=== PATIENT | male | born 1985 | race Two or more races ===

== ENCOUNTER 2018-11-04 18:02 | Emergency (ER) | payer OTHER ==
[2018-11-04 18:12] VITALS: BP 144/89; PULSE 82; TEMP 98.6; BMI 28.1
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
--- NOTE | 2018-11-04 18:30 | PDOC ---
History of Present Illness - General Chief Complaint: Laceration Stated Complaint: ABSCESS Time Seen by Provider: 11/04/18 18:13 - History of Present Illness Initial Comments: 11/04/18 18:30 33-year-old male without comorbidities and a history of IV drug use presents for evaluation of swelling of the left hand times one day. He states he uses IV drugs and has used IV drugs in that area. Past History - Past Medical History Allergies/Adverse Reactions: Allergies Allergy/AdvReac Type Severity Reaction Status Date / Time No Known Allergies Allergy Verified 11/04/18 18:09 Home Medications: Ambulatory Orders Sulfamethoxazole/Trimethoprim [Bactrim Ds -] 1 tab PO BID #12 tablet 10/22/15 Cephalexin [Keflex] 500 mg PO QID #40 capsule 11/04/18 Sulfamethoxazole/Trimethoprim [Bactrim Ds -] 1 tab PO BID #14 tablet 11/04/18 Anemia: No Asthma: Yes (on albuterol inhaler) Cancer: No Cardiac Disorders: No CVA: No COPD: No CHF: No Dementia: No Diabetes: No GI Disorders: No Disorders: No HTN: No Hypercholesterolemia: No Kidney Stones: No Liver Disease: No Seizures: No Thyroid Disease: No - Surgical History Abdominal Surgery: No Appendectomy: No Cardiac Surgery: No Cholecystectomy: No Lung Surgery: No Neurologic Surgery: No Orthopedic Surgery: No - Reproductive History Testicular Surgery: No - Immunization History Immunization Up to Date: Yes - Suicide/Smoking/Psychosocial Hx Smoking History: Current every day smoker Have you smoked in the past 12 months: No Number of Cigarettes Smoked Daily: 4 Cigars Per Day: 0 Information on smoking cessation initiated: No 'Breaking Loose' booklet given: 06/12/15 Hx Alcohol Use: No Drug/Substance Use Hx: No Substance Use Type: Alcohol, Cocaine, Heroin Hx Substance Use Treatment: Yes (03/10/14 to 03/15/14) Review of Systems - Review of Systems Constitutional: No: Fever Integumentary: Yes: Erythema *Physical Exam - Vital Signs Last Vital Signs Temp Pulse Resp BP Pulse Ox 98.6 F 82 18 144/89 98 11/04/18 18:09 11/04/18 18:09 11/04/18 18:09 11/04/18 18:09 11/04/18 18:09 - Physical Exam Comments: 11/04/18 18:29 There is faint erythema without warmth tenderness induration or areas of fluctuance over the dorsum of the left hand in the first and second webspace. The area was outlined with a sharpie marker there are no gross sensorimotor deficits no pain with passive stretch or sausagelike edema has full motion of all fingers with 4+ out of 5 planning analyst strength is neurovascularly intact Medical Decision Making - Medical Decision Making 11/04/18 18:28 33-year-old male with a history of IV drug use. He has swelling in the site where he used IV drugs. However examination except for some swelling and some erythematous changes is mostly benign. The swelling started today. I'll place him on Bactrim and Keflex and have him follow-up with hand surgery instructions are to follow-up without fail in 1-2 days he is in agreement with the plan. *DC/Admit/Observation/Transfer Diagnosis at time of Disposition: Cellulitis of left hand Diagnosis at time of Disposition: (Ruled Out): Hand laceration - Discharge Dispostion Disposition: HOME Condition at time of disposition: Stable Decision to Admit order: No - Prescriptions Prescriptions: Cephalexin [Keflex] 500 mg PO QID #40 capsule Sulfamethoxazole/Trimethoprim [Bactrim Ds -] 1 tab PO BID #14 tablet - Referrals Referrals: Clau Crandall [Primary Care Provider] - Karel Harrison MD [Staff Physician] - - Patient Instructions Printed Discharge Instructions: Cellulitis Additional Instructions: Return to the emergency room for worsening symptoms. Please take the antibiotics as directed. Tylenol and Motrin as directed for pain. Follow-up with hand surgery in 1-2 days without fail. - Post Discharge Activity
== END 2018-11-04 18:38 | disposition home or self-care (01) ==
LOC: JERFT 18:02
DX: L03.114 Cellulitis of left upper limb (principal); F15.90 Other stimulant use, unspecified, uncomplicated; F17.210 Nicotine dependence, cigarettes, uncomplicated; J45.909 Unspecified asthma, uncomplicated
CPT/HCPCS: 99281-25

== ENCOUNTER 2018-12-12 00:58 | Inpatient (IN) | payer OTHER ==
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
[2018-12-12] MEDS ORDERED: IBUPROFEN 400 MG TABLET (FP) PO PRN (01:22)
[2018-12-12] MEDS ORDERED: MELATONIN 5 MG TABLETS PO PRN (01:22)
[2018-12-12] MEDS ORDERED: MENTHOL/PHENOL 1 EACH UD MM PRN (01:22)
[2018-12-12] MEDS ORDERED: MAG HYDROX/AL HYDROX/SIMETH 30 ML UNIT-DOSE CUP PO PRN (01:22)
[2018-12-12] MEDS ORDERED: METHOCARBAMOL 500 MG TABLET PO PRN ×2 (01:22→01:26)
[2018-12-12] MEDS ORDERED: BISMUTH SUBSALICYLATE 524 MG/30 ML UD PO PRN (01:22)
[2018-12-12] MEDS ORDERED: hydrOXYzine PAMOATE 25 MG CAPSULE (FP) PO PRN (01:22)
[2018-12-12] MEDS ORDERED: ACETAMINOPHEN 325 MG TABLET (FP) PO PRN ×2 (01:22)
[2018-12-12] MEDS ORDERED: MAGNESIUM HYDROX 2400MG/30ML ORAL SUSPENSION 30 ML CUP PO PRN (01:22)
[2018-12-12] MEDS ORDERED: MAGNESIUM CITRATE 300 ML BOTTLE PO PRN (01:22)
[2018-12-12] MEDS ORDERED: NALOXONE HCL 0.4 MG/ML VIAL IVPUSH PRN (01:26)
[2018-12-12] MEDS ORDERED: guaiFENesin 200 MG/10 ML 10 ML UNIT-DOSE CUPS PO PRN (01:26)
[2018-12-12] MEDS ORDERED: DICYCLOMINE HCL 10 MG CAPSULE PO PRN (01:26)
[2018-12-12] MEDS ORDERED: P-EPHED 60MG/TRIPROLIDI 2.5MG TABLET PO PRN (01:26)
[2018-12-12] MEDS ORDERED: METHADONE HCL 10 MG TABLET (FOR DETOX USE ONLY) PO ONE ×2 (01:26→10:00)
[2018-12-12] MEDS ORDERED: ONDANSETRON *ODT* 4 MG TABLET SL PRN (01:26)
[2018-12-12] MEDS ORDERED: NICOTINE POLACRILEX 2 MG GUM BUC PRN (01:26)
[2018-12-12 01:38] VITALS: BMI 25.0
[2018-12-12 09:41] LABS: HEMATOCRIT 37.4 % (35.4-49); HEMOGLOBIN 12.7 GM/dL (11.7-16.9); MCH 31.1 pg (25.7-33.7); MEAN CELL VOLUME 91.2 fl (80-96); MEAN PLT VOLUME 10.5 fl (7.5-11.1); PLATELET COUNT 175 K/MM3 (134-434); RDW 13.4 % (11.9-15.9)
[2018-12-12 09:49] LABS: ALBUMIN 3.3 g/dl (3.4-5.0); BILIRUBIN,TOTAL 0.3 mg/dL (0.2-1); TOT PROT 6.3 g/dl (6.4-8.2)
[2018-12-12] MEDS ORDERED: PRENATAL VITAMINS W/ FOLIC ACID TABLET (FP) PO SCH (10:00)
[2018-12-12] MEDS ORDERED: NICOTINE 21 MG/24 HOURS TOPICAL PATCH TD SCH (10:00)
--- NOTE | 2018-12-12 10:11 | PN ---
S CIWA - CIWA Score Nausea/Vomitin Muscle Tremors: 2 Anxiety: 2 Agitation: 2 Paroxysmal Sweats: 1-Minimal Palms Moist Orientation: 0-Oriented Tacttile Disturbances: 1-Very Mild Itch/Numbness Auditory Disturbances: 1-Very Mild Visual Disturbances: 0-None Headache: 2-Mild CIWA-Ar Total Score: 13 BHS COWS - Scale Resting Pulse: 0= CT 80 or Below Sweatin= Chills/Flushing Restless Observation: 1= Difficult to Sit Still Pupil Size: 1= Pupils >than Normal Bone or Joint Aches: 2= Severe Diffuse Aches Runny Nose/ Eye Tearin= Nasal Congestion GI Upset > 30mins: 2= Nausea/Diarrhea Tremor Observation of Outstretched Hands: 2= Slight Tremor Visible Yawning Observation: 1= 1-2x During Session Anxiety or Irritability: 2=Irritable/Anxious Goose Flesh Skin: 0=Smooth Skin COWS Score: 13 S Progress Note (SOAP) Subjective: alert,irritable,anxious,interrupted sleep,tremor,pain in the body and back Objective: 12/12/18 10:10 Vital Signs Temperature 97.0 F L 12/12/18 09:12 Pulse Rate 61 12/12/18 09:12 Respiratory Rate 18 12/12/18 09:12 Blood Pressure 111/71 12/12/18 09:12 O2 Sat by Pulse Oximetry (%) 12/12/18 12/12/18 07:30 07:30 WBC 6.0 RBC 4.10 Hgb 12.7 Hct 37.4 MCV 91.2 MCHC 34.0 RDW 13.4 Plt Count 175 Sodium 146 H Potassium 4.0 Chloride 110 H Carbon Dioxide 30 Anion Gap 6 L BUN 16.0 Creatinine 1.0 other labs pending Assessment: 12/12/18 10:11 withdrawal symptom Plan: continue detox
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
[2018-12-12 17:17] VITALS: TEMP 97.9
[2018-12-12] MEDS ORDERED: THIAMINE HCL 100 MG TABLET (FP) PO SCH (22:00)
[2018-12-13 05:47] LABS: PH,URINE 7.5 (5.0-8.0); URINE APPEARANCE CLOUDY; URINE BILIRUBIN NEGATIVE (NEGATIVE); URINE COLOR YELLOW; URINE GLUCOSE (UA) NEGATIVE (NEGATIVE); URINE KETONE NEGATIVE (NEGATIVE); URINE LEUK ESTERASE NEGATIVE (NEGATIVE); URINE NITRITE NEGATIVE (NEGATIVE); URINE PROTEIN NEGATIVE (NEGATIVE)
[2018-12-13 06:29] VITALS: BP 119/66; PULSE 55
--- NOTE | 2018-12-13 09:17 | PN ---
S Progress Note Note: pt states he was advised to come here for a two day detox as per his program project renewal; however pt states he is feeling fine and wants to see his daughter play softball tournament. pt signed out AMA.
--- NOTE | 2018-12-13 09:19 | DS ---
[facility] Detox Discharge Summary Admission Date: 12/12/18 - History Present History: Opioid Dependence - Physical Exam Results Vital Signs: Vital Signs Temperature 97.9 F 12/13/18 06:00 Pulse Rate 55 L 12/13/18 06:00 Respiratory Rate 18 12/13/18 06:00 Blood Pressure 119/66 12/13/18 06:00 O2 Sat by Pulse Oximetry (%) - Treatment Hospital Course: Discharged Condition Good - AMA Did Patient Leave Against Medical Advice: Yes (going home.)
[2018-12-13] MEDS ORDERED: METHADONE HCL 10 MG TABLET (FOR DETOX USE ONLY) PO ONE (10:00)
[2018-12-14] MEDS ORDERED: METHADONE HCL 10 MG TABLET (FOR DETOX USE ONLY) PO ONE (10:00)
[2018-12-15] MEDS ORDERED: METHADONE HCL 10 MG TABLET (FOR DETOX USE ONLY) PO ONE (10:00)
[2018-12-16] MEDS ORDERED: METHADONE HCL 5 MG TABLET (FOR DETOX USE ONLY) PO ONE (06:00)
== END 2018-12-13 09:40 | disposition left against medical advice (07) | DRG 770 ==
LOC: YASAS 00:58 → Y6N 01:52
PROVIDERS: ADMIT Surgery; ATTEND Surgery
PROC: HZ2ZZZZ Detoxification Services for Substance Abuse Treatment (ICD-10-PCS; principal; 2018-12-12)
DX: F11.23 Opioid dependence with withdrawal (principal); F17.210 Nicotine dependence, cigarettes, uncomplicated; F19.24 Other psychoactive substance dependence with psychoactive substance-induced mood disorder; F31.9 Bipolar disorder, unspecified; F41.9 Anxiety disorder, unspecified; F43.10 Post-traumatic stress disorder, unspecified; G47.00 Insomnia, unspecified; J45.20 Mild intermittent asthma, uncomplicated; Z91.5 Personal history of self-harm
CPT/HCPCS: 36415; 80053; 81003; 85027; 86593

== ENCOUNTER 2019-02-17 10:41 | Emergency (ER) | payer OTHER ==
[2019-02-17 10:48] VITALS: BP 139/67; PULSE 80; TEMP 97.9; BMI 25.7
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
== END 2019-02-17 12:10 | disposition home or self-care (01) ==
LOC: JERFT 10:41
DX: S63.502A Unspecified sprain of left wrist, initial encounter (principal); S96.812A Strain of other specified muscles and tendons at ankle and foot level, left foot, initial encounter; X50.1XXA Overexertion from prolonged static or awkward postures, initial encounter; Y93.11 Activity, swimming; Y99.8 Other external cause status; Y92.89 Other specified places as the place of occurrence of the external cause
CPT/HCPCS: 73110-TC-LT-FY; 73130-TC-LT-FY; 99281-25

== ENCOUNTER 2019-02-17 20:23 | Emergency (ER) | payer OTHER ==
--- NOTE | 2019-02-17 20:38 | PDOC ---
Rapid Medical Evaluation Time Seen by Provider: 02/17/19 20:36 Medical Evaluation: Allergies Allergy/AdvReac Type Severity Reaction Status Date / Time No Known Allergies Allergy Verified 02/17/19 10:48 02/17/19 20:37 This patient had a brief in-person evaluation in triage cc: bilateral eye itching and swelling with contact lense in place today Patient reports no pain or blurred vision. Complaining of itching in both eyes HPI: HEENT: bilateral swollen eyelids unlabored breathing orders: none This patient will proceed to ED for further evaluation. Discharge Disposition - Diagnosis Eye irritation - Referrals - Patient Instructions - Post Discharge Activity
[2019-02-17 20:43] VITALS: BP 149/83; PULSE 75; TEMP 98; BMI 25.7
--- NOTE | 2019-02-17 21:40 | PDOC ---
History of Present Illness - General Chief Complaint: Eye Problem Stated Complaint: ITCHY EYES/SWELLING Time Seen by Provider: 02/17/19 20:36 - History of Present Illness Initial Comments: 02/17/19 21:39 33 -year-old male presents for evaluation of bilateral eye irritation and upper lid swelling 2 hours Past History - Past Medical History Allergies/Adverse Reactions: Allergies Allergy/AdvReac Type Severity Reaction Status Date / Time No Known Allergies Allergy Verified 02/17/19 20:43 Home Medications: Ambulatory Orders Cephalexin Monohydrate [Keflex -] 500 mg PO Q6HPO #7 capsule 02/14/19 Clotrimazole [Athlete's Foot] 60 gm TP BID #1 cream..g. 02/17/19 Olopatadine HCl [Pataday] 1 drop OU DAILY #1 bottle 02/17/19 Anemia: No Asthma: Yes (on albuterol inhaler) Cancer: No Cardiac Disorders: No CVA: No COPD: No CHF: No Dementia: No Diabetes: No GI Disorders: No Disorders: No HTN: No Hypercholesterolemia: No Kidney Stones: No Liver Disease: No Seizures: No Thyroid Disease: No - Surgical History Abdominal Surgery: No Appendectomy: No Cardiac Surgery: No Cholecystectomy: No Lung Surgery: No Neurologic Surgery: No Orthopedic Surgery: No - Reproductive History Testicular Surgery: No - Immunization History Immunization Up to Date: Yes - Suicide/Smoking/Psychosocial Hx Smoking History: Current every day smoker Have you smoked in the past 12 months: No Number of Cigarettes Smoked Daily: 20 Cigars Per Day: 0 Information on smoking cessation initiated: No 'Breaking Loose' booklet given: 02/11/19 Hx Alcohol Use: No Drug/Substance Use Hx: No Substance Use Type: Heroin Hx Substance Use Treatment: Yes ([facility]) Review of Systems - Review of Systems Constitutional: No: Fever HEENTM: Yes: See HPI *Physical Exam - Vital Signs Last Vital Signs Temp Pulse Resp BP Pulse Ox 98.0 F 75 16 149/83 100 02/17/19 20:40 02/17/19 20:40 02/17/19 20:40 02/17/19 20:40 02/17/19 20:40 - Physical Exam Comments: 02/17/19 21:37 HEAD: NC/AT EYES: Conjuntiva Emery injected upper lid swollen but normal color and temperature. Ears: Canals and TM's normal NOSE: No d/c THROAT: Moist mucous membrances, oral pharanx clear, uvula midline NECK: Supple without adenopathy CARDIAC: S1 S2 LUNGS: CTA Full and Equal breath sounds ABDOMEN: Soft NT ND MS: Full ROM in all joints without edema NEUROLOGIC: No gross sensory or motor deficits, NVID SKIN: Normal color and temperature no lesions or rashes Medical Decision Making - Medical Decision Making 02/17/19 21:36 PAtient suffers from seasonal ALLERGIES this is a onset of irritation due to change in weather. This is an ALLERGIC conjunctivitis with bilateral upper lid swelling. No evidence of infection. Will start on antihistamine eyedrops and have patient follow up with PCP. *DC/Admit/Observation/Transfer Diagnosis at time of Disposition: Eye irritation - Discharge Dispostion Disposition: HOME Condition at time of disposition: Stable Decision to Admit order: No - Prescriptions Prescriptions: Olopatadine HCl [Pataday] 1 drop OU DAILY #1 bottle - Referrals Referrals: Clau Crandall [Primary Care Provider] - - Patient Instructions Additional Instructions: These use the antihistamine eyedrop as directed. Return to the emergency room for worsening symptoms. Follow-up with your primary care physician in 1-2 days for further evaluation and treatment options. - Post Discharge Activity
== END 2019-02-17 21:41 | disposition home or self-care (01) ==
LOC: JERFT 20:23
DX: H10.13 Acute atopic conjunctivitis, bilateral (principal)
CPT/HCPCS: 99281-25

== ENCOUNTER 2019-02-23 20:50 | Emergency (ER) | payer OTHER ==
[2019-02-23 20:56] VITALS: BP 132/60; PULSE 76; TEMP 98.3; BMI 25.7
[2019-02-23] MEDS ORDERED: IBUPROFEN 600 MG TABLET (FP) PO ONE ×2 (21:38→21:41)
--- NOTE | 2019-02-23 22:10 | PDOC ---
History of Present Illness - General Chief Complaint: Abscess Boil Stated Complaint: ABCESS ON L ARM Time Seen by Provider: 02/23/19 21:34 History Source: Patient Exam Limitations: No Limitations - History of Present Illness Initial Comments: 02/23/19 22:03 HISTORY OF PRESENT ILLNESS: 33-year-old male past medical history of asthma and IV drug use presents emergency department for evaluation of abscess to his left forearm. Patient was seen at [facility] for detox approximately one week ago was started on Keflex at that time. Patient reports that time there was no pocket to drain tube was told to take the antibiotics and return to the emergency Department if anything were to develop. He denies fevers, chills, lymphangitis, and numbness or tingling to his fingers or IV drug use in the past week. No recent travel or sick contacts. PAST MEDICAL HISTORY: Denies past medical history SURGICAL HISTORY: Denies ALLERGIES: No known drug allergies REVIEW OF SYSTEMS General/Constitutional: Denies fever or chills. Denies weakness, weight change. HEENT: Denies change in vision. Denies ear pain or discharge. Denies sore throat. Cardiovascular: Denies chest pain or shortness of breath. Respiratory: Denies cough, wheezing, or hemoptysis. Gastrointestinal: Denies nausea, vomiting, diarrhea or constipation. Denies rectal bleeding. Genitourinary: Denies dysuria, frequency, or change in urination. Musculoskeletal: Denies joint or muscle swelling or pain. Denies neck or back pain. Skin and breasts: see HPI Neurologic: Denies headache, vertigo, loss of consciousness, or loss of sensation. Psychiatric: Denies depression or anxiety. Endocrine: Denies increased thirst. Denies abnormal weight change. Hematologic/Lymphatic: Denies anemia, easy bleeding, or history of blood clots. Allergic/Immunologic: Denies hives or skin allergy. Denies latex allergy. PHYSICAL EXAM General Appearance: Well-appearing, appropriately dressed. No apparent distress , no intoxication. Respiratory/Chest: Lungs CTAB. No shortness of breath, chest tenderness, respiratory distress, accessory muscle use. No crackles, rales, rhonchi, stridor , wheezing, dullness Cardiovascular: RRR. S1, S2. No JVD, murmur, bradycardia, tachycardia. Vascular Pulses: Dorsalis-Pedis (R): 2+, Dorsalis-Pedis (L): 2+ Musculoskeletal/Extremities: Normal inspection. FROM of all extremities, normal capillary refill. Pelvis Stable. No CVA tenderness. No tenderness to extremities, pedal edema, swelling, erythema or deformity. Integumentary: 4 cm x 6 cm area of erythema and induration present. 2 cm circular area of fluctuance noted. No lymphangitis present. Neurologic: penology professor II-XII intact. Fully oriented, alert. Appropriate mood/affect. Motor strength 5/5. No appreciable EOM palsy, facial droop or sensory deficit. Past History - Past Medical History Allergies/Adverse Reactions: Allergies Allergy/AdvReac Type Severity Reaction Status Date / Time No Known Allergies Allergy Verified 02/26/19 17:42 Home Medications: Ambulatory Orders Cephalexin Monohydrate [Keflex -] 500 mg PO Q6HPO #7 capsule 02/14/19 Clotrimazole [Athlete's Foot] 60 gm TP BID #1 cream..g. 02/17/19 Olopatadine HCl [Pataday] 1 drop OU DAILY #1 bottle 02/17/19 Olopatadine HCl [Pataday] 1 drop OU DAILY #1 bottle 02/17/19 Clindamycin [Cleocin -] 450 mg PO Q8H #63 capsule 02/23/19 Anemia: No Asthma: Yes (on albuterol inhaler) Cancer: No Cardiac Disorders: No CVA: No COPD: No CHF: No Dementia: No Diabetes: No GI Disorders: No Disorders: No HTN: No Hypercholesterolemia: No Kidney Stones: No Liver Disease: No Seizures: No Thyroid Disease: No - Surgical History Abdominal Surgery: No Appendectomy: No Cardiac Surgery: No Cholecystectomy: No Lung Surgery: No Neurologic Surgery: No Orthopedic Surgery: No - Reproductive History Testicular Surgery: No - Immunization History Immunization Up to Date: Yes - Suicide/Smoking/Psychosocial Hx Smoking History: Current every day smoker Have you smoked in the past 12 months: Yes Number of Cigarettes Smoked Daily: 10 Cigars Per Day: 0 Information on smoking cessation initiated: Yes 'Breaking Loose' booklet given: 02/11/19 Hx Alcohol Use: No Drug/Substance Use Hx: No Substance Use Type: Heroin Hx Substance Use Treatment: Yes ([facility]) *Physical Exam - Vital Signs Last Vital Signs Temp Pulse Resp BP Pulse Ox 98.3 F 76 18 132/60 100 02/23/19 20:52 02/23/19 20:52 02/23/19 20:52 02/23/19 20:52 02/23/19 20:52 Procedures - Consent Consent obtained: Verbal, From Patient - Incision and Drainage I&D Site: Left: Arm Betadine cleansed: Yes Anesthesia: 1% Lidocaine Volume(ml): 6 Blade Size: 11 Attempts: 1 Iodinated Packin/2 in Complications: none Dressing: Yes Progress: 02/23/19 22:06 patient tolerated well ED Treatment Course - Medications Given in the ED: ED Medications Discontinued Medications Generic Name Dose Route Start Last Admin Trade Name Luz Maria PRN Reason Stop Dose Admin Ibuprofen 600 mg 02/23/19 21:38 02/23/19 21:42 Motrin - PO 02/23/19 21:39 600 mg ONCE ONE Administration Medical Decision Making - Medical Decision Making 02/23/19 22:07 A/P: 33-year-old male with abscess to his left forearm status post IV drug use No signs of compartment syndrome present. I&D-see procedure note for details Discharge home with prescription for clindamycin I discussed the physical exam findings, ancillary test results and final diagnoses with the patient. I answered all of the patient's questions. The patient was satisfied with the care received and felt comfortable with the discharge plan and treatment plan. The patient will call their primary care physician within 24 hours to arrange follow-up and will return to the Emergency Department with any new, persistent or worsening symptoms. Portions of this note have been documented using voice recognition software. As a result, errors may occur in the photographer scientific process. Effort has been made to correct all grammatical and photographer scientific error, but some may have been missed. 02/23/19 22:07 *DC/Admit/Observation/Transfer Diagnosis at time of Disposition: Abscess of left forearm - Discharge Dispostion Disposition: HOME Condition at time of disposition: Stable Decision to Admit order: No - Prescriptions Prescriptions: Clindamycin [Cleocin -] 450 mg PO Q8H #63 capsule - Referrals - Patient Instructions Additional Instructions: Take clindamycin 450 mg 3 times a day for the next 7 days Finish all antibiotics even if you feel better. Apply warm compresses to affected areas as needed. Return to emergency department in 2 days for wound check. Return to ER sooner for any worsening pain, drainage, or any other concerns. Thank you very much for choosing us to provide your emergent health care needs. - Post Discharge Activity
== END 2019-02-23 22:24 | disposition home or self-care (01) ==
LOC: JERFT 20:50
PROC: 0J9H0ZZ Drainage of Left Lower Arm Subcutaneous Tissue and Fascia, Open Approach (ICD-10-PCS; principal; 2019-02-23)
DX: L02.414 Cutaneous abscess of left upper limb (principal)
CPT/HCPCS: 10060; 87070; 87186; 87205; 99282-25

== ENCOUNTER 2019-02-26 17:29 | Emergency (ER) | payer OTHER ==
[2019-02-26 17:41] VITALS: BP 121/69; PULSE 88; TEMP 98.5; BMI 25.7
--- NOTE | 2019-02-26 17:41 | PDOC ---
Rapid Medical Evaluation Time Seen by Provider: 02/26/19 17:39 Medical Evaluation: Allergies Allergy/AdvReac Type Severity Reaction Status Date / Time No Known Allergies Allergy Verified 02/23/19 20:52 02/26/19 17:40 I have performed a brief in-person evaluation of this patient. The patient presents with a chief complaint of: wound check Pertinent physical exam findings:stable and in NAD, non-focal I have ordered the following: n/a The patient will proceed to the ED for further evaluation.
--- NOTE | 2019-02-26 19:03 | PDOC ---
Suture Removal/Wound Check HPI - History of Present Illness Chief Complaint: Revisit,Wound Recheck Stated Complaint: EVALUATION Time Seen by Provider: 02/26/19 17:39 History Source: Yes: Patient Exam Limitations: Yes: No Limitations Treated at: [facility] Date of Last ED visit: 02/23/19 - Previous ED Treatment Type of procedure performed on last visit: Yes: I&D of Abscess (Patient here for wound check s/p I&D. Packing removed.) Antibiotics Prescribed: Yes - Onset of Previous Treatment Comment:: 02/26/19 19:04 Patient here for wound check s/p I&D. Packing removed. Abscess healing well, decreased pain and swelling per patient. Patient denies any f/n/v/d. Packing dressed with dry gauze, tegaderm. Advised patient of signs and symptoms for return to ER and to complete antibiotics as prescribed. Patient verbalized understanding and agrees to plan. Past History - Past Medical History Allergies/Adverse Reactions: Allergies Allergy/AdvReac Type Severity Reaction Status Date / Time No Known Allergies Allergy Verified 02/26/19 17:42 Home Medications: Ambulatory Orders Cephalexin Monohydrate [Keflex -] 500 mg PO Q6HPO #7 capsule 02/14/19 Clotrimazole [Athlete's Foot] 60 gm TP BID #1 cream..g. 02/17/19 Olopatadine HCl [Pataday] 1 drop OU DAILY #1 bottle 02/17/19 Olopatadine HCl [Pataday] 1 drop OU DAILY #1 bottle 02/17/19 Clindamycin [Cleocin -] 450 mg PO Q8H #63 capsule 02/23/19 Anemia: No Asthma: Yes (on albuterol inhaler) Cancer: No Cardiac Disorders: No CVA: No COPD: No CHF: No Dementia: No Diabetes: No GI Disorders: No Disorders: No HTN: No Hypercholesterolemia: No Kidney Stones: No Liver Disease: No Seizures: No Thyroid Disease: No - Surgical History Abdominal Surgery: No Appendectomy: No Cardiac Surgery: No Cholecystectomy: No Lung Surgery: No Neurologic Surgery: No Orthopedic Surgery: No - Reproductive History Testicular Surgery: No - Immunization History Immunization Up to Date: Yes - Suicide/Smoking/Psychosocial Hx Smoking History: Current every day smoker Have you smoked in the past 12 months: Yes Number of Cigarettes Smoked Daily: 10 Cigars Per Day: 0 Information on smoking cessation initiated: No 'Breaking Loose' booklet given: 02/11/19 Hx Alcohol Use: Yes Drug/Substance Use Hx: Yes ("EVERYTHING") Substance Use Type: Heroin Hx Substance Use Treatment: Yes ([facility]) *Physical Exam - Vital Signs Last Vital Signs Temp Pulse Resp BP Pulse Ox 98.5 F 88 16 121/69 97 02/26/19 17:39 02/26/19 17:39 02/26/19 17:39 02/26/19 17:39 02/26/19 17:39 *DC/Admit/Observation/Transfer Diagnosis at time of Disposition: Encounter for wound re-check - Discharge Dispostion Disposition: HOME Condition at time of disposition: Stable Decision to Admit order: No - Referrals Referrals: Clau Crandall [Primary Care Provider] - - Patient Instructions Printed Discharge Instructions: How to Care for a Surgical Wound - Post Discharge Activity
== END 2019-02-26 19:14 | disposition home or self-care (01) ==
LOC: JERFT 17:29
DX: Z48.817 Encounter for surgical aftercare following surgery on the skin and subcutaneous tissue (principal); Z48.01 Encounter for change or removal of surgical wound dressing
CPT/HCPCS: 99281-25

== ENCOUNTER 2021-09-01 14:42 | Emergency (ER) | payer OTHER ==
[2021-09-01 14:55] VITALS: BP 128/85; PULSE 71; TEMP 97.9; BMI 27.2
[2021-09-01] MEDS ORDERED: LIDOCAINE 5% TOPICAL PATCH TP ONE (15:23)
[2021-09-01] MEDS ORDERED: IBUPROFEN 600 MG TABLET (FP) PO ONE ×2 (15:23→15:25)
[2021-09-01] MEDS ORDERED: CYCLOBENZAPRINE HCL 10 MG TABLET (FP) PO ONE (15:23)
[2021-09-01] MEDS ORDERED: CYCLOBENZAPRINE HCL 10 MG TABLET (FP) ONE (15:25)
[2021-09-01] MEDS ORDERED: LIDOCAINE 5% TOPICAL PATCH ONE (15:25)
[2021-09-01] MEDS ORDERED: LIDOCAINE PATCH REMOVAL MC SCH (22:00)
== END 2021-09-01 15:55 | disposition home or self-care (01) ==
LOC: JERFT 14:42
DX: M62.830 Muscle spasm of back (principal); M54.50 Low back pain, unspecified
CPT/HCPCS: 72100-TC-FY; 99283-25

== ENCOUNTER 2021-09-19 18:23 | Emergency (ER) | payer OTHER ==
[2021-09-19] MEDS ORDERED: SODIUM CHLORIDE 1,000 ML IV STA (18:36)
[2021-09-19 18:37] VITALS: BMI 27.2
[2021-09-19 19:54] LABS: BASO % 0.4 % (0-2.0); EOS % 1.5 % (0-4.5); HEMATOCRIT 37.4 % (35.4-49); HEMOGLOBIN 12.8 GM/dL (11.7-16.9); LYMPH % 13.8 % (8-40); MCH 31.3 pg (25.7-33.7); MCHC 34.3 g/dl (32.0-35.9); MEAN CELL VOLUME 91.1 fl (80-96); MEAN PLT VOLUME 10.1 fl (7.5-11.1); MONO % 9.8 % (3.8-10.2); NEUT % 74.5 % (42.8-82.8); PLATELET COUNT 202 10^3/uL (134-434); RDW 13.7 % (11.9-15.9); WHITE BLOOD COUNT 8.9 K/mm3 (4.0-10.0)
[2021-09-19 20:10] LABS: CHLORIDE 108 mmol/L (98-107); SODIUM 141 mmol/L (136-145)
[2021-09-19 20:12] LABS: ANION GAP 5 MMOL/L (8-16); BLOOD UREA NITROGEN 11.8 mg/dL (7-18); CALCIUM 8.7 mg/dL (8.5-10.1); CO2 28 mmol/L (21-32)
[2021-09-19 20:13] LABS: ALBUMIN 3.7 g/dl (3.4-5.0); GLUCOSE,RANDOM 112 mg/dL (74-106)
[2021-09-19 20:16] LABS: SGOT/AST 45 U/L (15-37); SGPT/ALT 40 U/L (13-61)
[2021-09-19 20:17] LABS: BILIRUBIN,TOTAL 0.3 mg/dL (0.2-1); TOT PROT 7.1 g/dl (6.4-8.2)
[2021-09-19 20:18] LABS: ALK PHOS 84 U/L (45-117)
[2021-09-19 21:33] LABS: PHENCYCLIDINE,URINE NEGATIVE (NEGATIVE); URINE AMPHETAMINES NEGATIVE (NEGATIVE); URINE BENZODIAZEPINES NEGATIVE (NEGATIVE)
[2021-09-19 21:34] LABS: URINE BARBITURATES NEGATIVE (NEGATIVE)
[2021-09-19 21:35] LABS: COCAINE, UR POSITIVE (NEGATIVE); METHADONE, UR POSITIVE (NEGATIVE); OPIATES, URI POSITIVE (NEGATIVE)
[2021-09-19 22:30] VITALS: BP 125/71; PULSE 85; TEMP 97.6
== END 2021-09-19 22:35 | disposition home or self-care (01) ==
LOC: JER 18:23
PROC: 3E0337Z Introduction of Electrolytic and Water Balance Substance into Peripheral Vein, Percutaneous Approach (ICD-10-PCS; principal; 2021-09-19)
DX: F11.920 Opioid use, unspecified with intoxication, uncomplicated (principal)
CPT/HCPCS: 36415; 80053; 80307; 82550; 82553; 82962; 85025; 93005; 93010; 99285-25

== ENCOUNTER 2021-09-21 09:37 | Inpatient (IN) | payer OTHER ==
[2021-09-21] MEDS ORDERED: ACETAMINOPHEN 325 MG TABLET (FP) PO PRN ×2 (11:13)
[2021-09-21] MEDS ORDERED: MENTHOL/PHENOL 1 EACH UD MM PRN (11:13)
[2021-09-21] MEDS ORDERED: IBUPROFEN 400 MG TABLET (FP) PO PRN (11:13)
[2021-09-21] MEDS ORDERED: MAGNESIUM CITRATE 300 ML BOTTLE PO PRN (11:13)
[2021-09-21] MEDS ORDERED: LOPERAMIDE HCL 2 MG CAPSULE PO PRN (11:13)
[2021-09-21] MEDS ORDERED: ONDANSETRON *ODT* 4 MG TABLET SL PRN (11:13)
[2021-09-21] MEDS ORDERED: BISMUTH SUBSALICYLATE 262 MG/15 ML BTL PO PRN (11:13)
[2021-09-21] MEDS ORDERED: MAGNESIUM HYDROX 2400MG/30ML ORAL SUSPENSION 30 ML CUP PO PRN (11:13)
[2021-09-21] MEDS ORDERED: DICYCLOMINE HCL 10 MG CAPSULE PO PRN (11:13)
[2021-09-21] MEDS ORDERED: NICOTINE 10 MG CARTRIDGE (INHALER) IH PRN (11:13)
[2021-09-21] MEDS ORDERED: MAG HYDROX/AL HYDROX/SIMETH 30 ML UNIT-DOSE CUP PO PRN (11:13)
[2021-09-21] MEDS ORDERED: ALBUTEROL SO4 HFA INHALER IH PRN (11:16)
[2021-09-21] MEDS ORDERED: NALOXONE (NARCAN) HCL 4 MG/0.1 ML SPRAY NS PRN (11:16)
[2021-09-21 11:37] VITALS: BMI 27.5
[2021-09-21] MEDS: METHOCARBAMOL 500 MG TABLET PO PRN ×2 (14:44→23:00)
[2021-09-21] MEDS: DOCUSATE SODIUM 100 MG CAPSULE (FP) PO SCH ×2 (14:44→22:59)
[2021-09-21] MEDS: hydrOXYzine PAMOATE 25 MG CAPSULE (FP) PO SCH ×3 (14:44→22:59)
[2021-09-21 18:31] LABS: CALCIUM 9.5 mg/dL (8.5-10.1)
[2021-09-21 18:32] LABS: HEMATOCRIT 37.1 % (35.4-49); HEMOGLOBIN 12.9 GM/dL (11.7-16.9); MCH 31.6 pg (25.7-33.7); MCHC 34.9 g/dl (32.0-35.9); MEAN CELL VOLUME 90.7 fl (80-96); MEAN PLT VOLUME 10.5 fl (7.5-11.1); PLATELET COUNT 225 10^3/uL (134-434); RBC 4.09 M/mm3 (4.00-5.60); RDW 13.6 % (11.9-15.9)
[2021-09-21 18:36] LABS: BILIRUBIN,TOTAL 0.7 mg/dL (0.2-1); TOT PROT 7.8 g/dl (6.4-8.2)
[2021-09-21] MEDS: LIDOCAINE 5% TOPICAL PATCH TP SCH (18:57)
[2021-09-21 19:28] LABS: HIV INTERPRETATION NEGATIVE (NEGATIVE)
[2021-09-21] MEDS: LIDOCAINE PATCH REMOVAL MC SCH (22:59)
[2021-09-21] MEDS: THIAMINE HCL 100 MG TABLET (FP) PO SCH (22:59)
[2021-09-21] MEDS: MELATONIN 5 MG TABLETS PO SCH (22:59)
[2021-09-22] MEDS: METHOCARBAMOL 500 MG TABLET PO PRN (06:15)
[2021-09-22] MEDS: DOCUSATE SODIUM 100 MG CAPSULE (FP) PO SCH ×3 (06:15→23:13)
[2021-09-22] MEDS: hydrOXYzine PAMOATE 25 MG CAPSULE (FP) PO SCH ×5 (06:15→23:14)
[2021-09-22] MEDS ORDERED: methaDONE HCL 10 MG TABLET (FOR DETOX USE ONLY) PO ONE (10:12)
[2021-09-22] MEDS: PRENATAL VITAMINS W/ FOLIC ACID TABLET (FP) PO SCH (10:29)
[2021-09-22] MEDS: LIDOCAINE 5% TOPICAL PATCH TP SCH (10:56)
[2021-09-22] MEDS: diazePAM 5 MG TABLET PO PRN ×2 (14:56→19:31)
[2021-09-22] MEDS: MELATONIN 5 MG TABLETS PO SCH (23:13)
[2021-09-22] MEDS: LIDOCAINE PATCH REMOVAL MC SCH (23:13)
[2021-09-22] MEDS: THIAMINE HCL 100 MG TABLET (FP) PO SCH (23:14)
[2021-09-23] MEDS: METHOCARBAMOL 500 MG TABLET PO PRN ×2 (05:58→15:03)
[2021-09-23] MEDS: DOCUSATE SODIUM 100 MG CAPSULE (FP) PO SCH ×3 (06:03→22:21)
[2021-09-23] MEDS: hydrOXYzine PAMOATE 25 MG CAPSULE (FP) PO SCH ×5 (06:03→22:22)
[2021-09-23] MEDS: diazePAM 5 MG TABLET PO PRN ×4 (06:04→22:21)
[2021-09-23] MEDS: LIDOCAINE 5% TOPICAL PATCH TP SCH (10:35)
[2021-09-23] MEDS: PRENATAL VITAMINS W/ FOLIC ACID TABLET (FP) PO SCH (10:38)
[2021-09-23 15:07] LABS: SARS-CoV-2 NAA Not Detected (Not Detected)
[2021-09-23] MEDS: THIAMINE HCL 100 MG TABLET (FP) PO SCH (22:19)
[2021-09-23] MEDS: MELATONIN 5 MG TABLETS PO SCH (22:19)
[2021-09-23] MEDS: LIDOCAINE PATCH REMOVAL MC SCH (22:22)
[2021-09-24] MEDS: diazePAM 5 MG TABLET PO PRN ×3 (06:32→21:16)
[2021-09-24] MEDS: DOCUSATE SODIUM 100 MG CAPSULE (FP) PO SCH ×3 (06:33→21:19)
[2021-09-24] MEDS: hydrOXYzine PAMOATE 25 MG CAPSULE (FP) PO SCH ×5 (06:34→21:19)
[2021-09-24] MEDS: METHOCARBAMOL 500 MG TABLET PO PRN (09:55)
[2021-09-24] MEDS: LIDOCAINE 5% TOPICAL PATCH TP SCH (09:56)
[2021-09-24] MEDS: PRENATAL VITAMINS W/ FOLIC ACID TABLET (FP) PO SCH (10:00)
[2021-09-24] MEDS ORDERED: methaDONE HCL 10 MG TABLET (FOR DETOX USE ONLY) PO ONE (10:00)
[2021-09-24] MEDS: THIAMINE HCL 100 MG TABLET (FP) PO SCH (21:18)
[2021-09-24] MEDS: MELATONIN 5 MG TABLETS PO SCH (21:18)
[2021-09-24] MEDS: LIDOCAINE PATCH REMOVAL MC SCH (21:19)
[2021-09-25] MEDS: hydrOXYzine PAMOATE 25 MG CAPSULE (FP) PO SCH (06:13)
[2021-09-25] MEDS: DOCUSATE SODIUM 100 MG CAPSULE (FP) PO SCH (06:13)
[2021-09-25 08:36] VITALS: BP 121/60; PULSE 68; TEMP 97.3
== END 2021-09-25 09:29 | disposition home or self-care (01) | DRG 773 ==
LOC: YASAS 09:37 → Y3N 12:28
PROVIDERS: ADMIT Allergy & Immunology; ATTEND Allergy & Immunology
PROC: HZ2ZZZZ Detoxification Services for Substance Abuse Treatment (ICD-10-PCS; principal; 2021-09-21)
DX: F11.23 Opioid dependence with withdrawal (principal); F12.20 Cannabis dependence, uncomplicated; F17.210 Nicotine dependence, cigarettes, uncomplicated; F19.24 Other psychoactive substance dependence with psychoactive substance-induced mood disorder; F41.9 Anxiety disorder, unspecified; F32.A Depression, unspecified; F43.10 Post-traumatic stress disorder, unspecified; J45.909 Unspecified asthma, uncomplicated; M54.50 Low back pain, unspecified; R03.0 Elevated blood-pressure reading, without diagnosis of hypertension; Z56.0 Unemployment, unspecified; Z59.00 Homelessness unspecified
CPT/HCPCS: 36415; 80053; 85027; 86780; 86803; 87389; 87811; C9803-CS; U0003; U0005

== ENCOUNTER 2021-09-26 15:31 | Inpatient (IN) | payer OTHER ==
[2021-09-26 17:20] VITALS: BMI 28.7
[2021-09-26] MEDS ORDERED: ALBUTEROL SO4 HFA INHALER IH PRN (19:15)
[2021-09-26] MEDS ORDERED: MAG HYDROX/AL HYDROX/SIMETH 30 ML UNIT-DOSE CUP PO PRN (19:16)
[2021-09-26] MEDS ORDERED: ACETAMINOPHEN 325 MG TABLET (FP) PO PRN (19:16)
[2021-09-26] MEDS ORDERED: MAGNESIUM HYDROX 2400MG/30ML ORAL SUSPENSION 30 ML CUP PO PRN (19:16)
[2021-09-26] MEDS ORDERED: MENTHOL/PHENOL 1 EACH UD MM PRN (19:16)
[2021-09-26] MEDS ORDERED: P-EPHED 60MG/TRIPROLIDI 2.5MG TABLET PO PRN (19:16)
[2021-09-26] MEDS ORDERED: NICOTINE 10 MG CARTRIDGE (INHALER) IH PRN (19:16)
[2021-09-26] MEDS ORDERED: LOPERAMIDE HCL 2 MG CAPSULE PO PRN (19:16)
[2021-09-26] MEDS ORDERED: MAGNESIUM CITRATE 300 ML BOTTLE PO PRN (19:16)
[2021-09-26] MEDS ORDERED: guaiFENesin 200 MG/10 ML 10 ML UNIT-DOSE CUPS PO PRN (19:16)
[2021-09-27] MEDS: THIAMINE HCL 100 MG TABLET (FP) PO SCH ×2 (03:50→21:15)
[2021-09-27] MEDS: MELATONIN 5 MG TABLETS PO SCH ×2 (03:50→21:15)
[2021-09-27] MEDS: IBUPROFEN 400 MG TABLET (FP) PO PRN (04:14)
[2021-09-27] MEDS: PRENATAL VITAMINS W/ FOLIC ACID TABLET (FP) PO SCH (09:52)
[2021-09-27] MEDS: LIDOCAINE 5% TOPICAL PATCH TP SCH (20:17)
[2021-09-27] MEDS: GABAPENTIN 100 MG CAPSULE PO SCH (21:15)
[2021-09-27] MEDS: QUEtiapine FUMARATE 100 MG TABLET (FP) PO SCH (21:15)
[2021-09-27] MEDS: LIDOCAINE PATCH REMOVAL MC SCH (21:16)
[2021-09-28] MEDS: GABAPENTIN 100 MG CAPSULE PO SCH ×3 (06:50→21:20)
[2021-09-28] MEDS: LIDOCAINE 5% TOPICAL PATCH TP SCH (10:11)
[2021-09-28] MEDS: PRENATAL VITAMINS W/ FOLIC ACID TABLET (FP) PO SCH (10:11)
[2021-09-28] MEDS: IBUPROFEN 400 MG TABLET (FP) PO PRN (10:12)
[2021-09-28] MEDS: LIDOCAINE PATCH REMOVAL MC SCH (21:19)
[2021-09-28] MEDS: THIAMINE HCL 100 MG TABLET (FP) PO SCH (21:20)
[2021-09-28] MEDS: QUEtiapine FUMARATE 100 MG TABLET (FP) PO SCH (21:20)
[2021-09-28] MEDS: MELATONIN 5 MG TABLETS PO SCH (21:21)
[2021-09-29] MEDS: GABAPENTIN 100 MG CAPSULE PO SCH ×2 (06:56→13:47)
[2021-09-29 07:04] VITALS: BP 123/77; PULSE 64; TEMP 97.3
[2021-09-29] MEDS: LIDOCAINE 5% TOPICAL PATCH TP SCH (10:11)
[2021-09-29] MEDS: PRENATAL VITAMINS W/ FOLIC ACID TABLET (FP) PO SCH (10:11)
[2021-09-29] MEDS: IBUPROFEN 400 MG TABLET (FP) PO PRN (10:12)
== END 2021-09-29 19:03 | disposition home or self-care (01) | DRG 773 ==
LOC: YASAS 15:31 → Y5N 21:01
PROVIDERS: ADMIT Allergy & Immunology; ATTEND Allergy & Immunology
PROC: HZ2ZZZZ Detoxification Services for Substance Abuse Treatment (ICD-10-PCS; principal; 2021-09-26)
DX: F11.23 Opioid dependence with withdrawal (principal); F12.20 Cannabis dependence, uncomplicated; F17.210 Nicotine dependence, cigarettes, uncomplicated; F39 Unspecified mood [affective] disorder; G47.00 Insomnia, unspecified; R03.0 Elevated blood-pressure reading, without diagnosis of hypertension; J45.909 Unspecified asthma, uncomplicated; M54.59 Other low back pain; G89.29 Other chronic pain; Z87.828 Personal history of other (healed) physical injury and trauma; Z56.0 Unemployment, unspecified; Z59.00 Homelessness unspecified
CPT/HCPCS: 73130-TC-RT-FY; C9803-CS; U0003; U0005

== ENCOUNTER 2021-10-28 21:08 | Observation (INO) | payer OTHER ==
[2021-10-28 21:24] VITALS: BMI 31.5
[2021-10-28] MEDS ORDERED: LACTATED RINGERS SOLUTION 1000 ML INFUS.BAG IV ONE (21:27)
[2021-10-28 22:14] LABS: BASO % 0.4 % (0-2.0); EOS % 0.6 % (0-4.5); HEMATOCRIT 41.8 % (35.4-49); LYMPH % 7.2 % (8-40); MCH 30.8 pg (25.7-33.7); MCHC 33.6 g/dl (32.0-35.9); MEAN CELL VOLUME 91.6 fl (80-96); MEAN PLT VOLUME 9.9 fl (7.5-11.1); MONO % 4.1 % (3.8-10.2); NEUT % 87.7 % (42.8-82.8); RBC 4.56 M/mm3 (4.00-5.60); RDW 13.7 % (11.9-15.9); WHITE BLOOD COUNT 14.2 K/mm3 (4.0-10.0)
[2021-10-28 22:36] LABS: PLATELET COUNT 189 10^3/uL (134-434)
[2021-10-28 22:41] LABS: CALCIUM 9.1 mg/dL (8.5-10.1)
[2021-10-28 22:42] LABS: ALBUMIN 4.6 g/dl (3.4-5.0); BLOOD UREA NITROGEN 14.8 mg/dL (7-18)
[2021-10-28 22:45] LABS: CREATININE 1.1 mg/dL (0.55-1.3)
[2021-10-28 22:47] LABS: BILIRUBIN,TOTAL 0.4 mg/dL (0.2-1); TOT PROT 8.4 g/dl (6.4-8.2)
[2021-10-29] MEDS ORDERED: DEXTROSE 5%-NORMAL SALINE 1,000 ML IV SCH (04:30)
[2021-10-29 06:08] LABS: CALCIUM 8.7 mg/dL (8.5-10.1)
[2021-10-29 06:09] LABS: ALBUMIN 3.7 g/dl (3.4-5.0); BLOOD UREA NITROGEN 11.8 mg/dL (7-18); MAGNESIUM 2.4 mg/dL (1.8-2.4)
[2021-10-29 06:12] LABS: PHOSPHOROUS 3.7 mg/dL (2.5-4.9)
[2021-10-29 06:13] LABS: BILIRUBIN,TOTAL 0.5 mg/dL (0.2-1); TOT PROT 6.7 g/dl (6.4-8.2)
[2021-10-29 06:37] LABS: BASO % 0.4 % (0-2.0); EOS % 1.9 % (0-4.5); HEMATOCRIT 38.1 % (35.4-49); HEMOGLOBIN 12.7 GM/dL (11.7-16.9); LYMPH % 20.5 % (8-40); MCH 30.7 pg (25.7-33.7); MCHC 33.3 g/dl (32.0-35.9); MEAN CELL VOLUME 92.2 fl (80-96); MEAN PLT VOLUME 10.5 fl (7.5-11.1); MONO % 8.7 % (3.8-10.2); NEUT % 68.5 % (42.8-82.8); PLATELET COUNT 183 10^3/uL (134-434); RBC 4.13 M/mm3 (4.00-5.60); RDW 13.7 % (11.9-15.9); WHITE BLOOD COUNT 11.3 K/mm3 (4.0-10.0)
[2021-10-29] MEDS ORDERED: ENOXAPARIN NA (PORCINE) 40 MG/0.4 ML DISP.SYRIN SQ SCH (10:00)
[2021-10-29] MEDS ORDERED: CEFTRIAXONE 1 GM in DEXTROSE 5%-WATER - 50 ML IVPB SCH (11:30)
[2021-10-29] MEDS ORDERED: cefTRIAXone SODIUM 1 GM VIAL ONE (12:37)
[2021-10-29] MEDS ORDERED: DEXTROSE 5%-WATER - 50 ML IVPB ONE (12:37)
[2021-10-29 15:38] VITALS: BP 127/75; PULSE 60; TEMP 97.8
== END 2021-10-29 12:00 | disposition left against medical advice (07) ==
LOC: JER 21:08 → JERBED 10-29 02:58 → INTOOBSV 10-29 02:58 → J4S 10-29 08:46
PROVIDERS: ADMIT Internal Medicine; ATTEND Internal Medicine
PROC: 3E033GC Introduction of Other Therapeutic Substance into Peripheral Vein, Percutaneous Approach (ICD-10-PCS; principal; 2021-10-29)
PROC: 3E023GC Introduction of Other Therapeutic Substance into Muscle, Percutaneous Approach (ICD-10-PCS; 2021-10-29)
DX: F19.90 Other psychoactive substance use, unspecified, uncomplicated (principal); F12.20 Cannabis dependence, uncomplicated; F11.20 Opioid dependence, uncomplicated; R09.02 Hypoxemia; R00.1 Bradycardia, unspecified; R41.0 Disorientation, unspecified; Z29.8 Encounter for other specified prophylactic measures; J30.1 Allergic rhinitis due to pollen; E66.9 Obesity, unspecified; R06.02 Shortness of breath; Z68.31 Body mass index [BMI] 31.0-31.9, adult
CPT/HCPCS: 36415; 71045-TC-FY; 80053; 82550; 82553; 83735; 84100; 85025; 93005; 93010; 96365; 96372; 99285-25; C9803-CS; G0378; U0003; U0005

== ENCOUNTER 2021-11-05 16:33 | Inpatient (IN) | payer OTHER ==
[2021-11-05 17:32] VITALS: BMI 29.0
[2021-11-05] MEDS ORDERED: IBUPROFEN 400 MG TABLET (FP) PO PRN (20:18)
[2021-11-05] MEDS ORDERED: cloNIDine HCL 0.1 MG TABLET PO PRN (20:18)
[2021-11-05] MEDS ORDERED: MAGNESIUM CITRATE 300 ML BOTTLE PO PRN (20:18)
[2021-11-05] MEDS ORDERED: ONDANSETRON *ODT* 4 MG TABLET SL PRN (20:18)
[2021-11-05] MEDS ORDERED: MAGNESIUM HYDROX 2400MG/30ML ORAL SUSPENSION 30 ML CUP PO PRN (20:18)
[2021-11-05] MEDS ORDERED: ACETAMINOPHEN 325 MG TABLET (FP) PO PRN ×2 (20:18)
[2021-11-05] MEDS ORDERED: MAG HYDROX/AL HYDROX/SIMETH 30 ML UNIT-DOSE CUP PO PRN (20:18)
[2021-11-05] MEDS ORDERED: BISMUTH SUBSALICYLATE 524 MG/30 ML PO PRN (20:18)
[2021-11-05] MEDS ORDERED: NICOTINE POLACRILEX 2 MG GUM BUC PRN (20:18)
[2021-11-05] MEDS ORDERED: DICYCLOMINE HCL 10 MG CAPSULE PO PRN (20:18)
[2021-11-05] MEDS ORDERED: BENZOCAINE/MENTHOL (CHLORASEPTIC ) LOZENGE MM PRN (20:18)
[2021-11-05] MEDS ORDERED: hydrOXYzine PAMOATE 25 MG CAPSULE (FP) PO PRN (20:18)
[2021-11-05] MEDS ORDERED: LOPERAMIDE HCL 2 MG CAPSULE PO PRN (20:18)
[2021-11-05] MEDS ORDERED: methaDONE HCL 10 MG TABLET (FOR DETOX USE ONLY) PO ONE (20:18)
[2021-11-05] MEDS: THIAMINE HCL 100 MG TABLET (FP) PO SCH (22:58)
[2021-11-05] MEDS: MELATONIN 5 MG TABLETS PO PRN (22:58)
[2021-11-06] MEDS ORDERED: methaDONE HCL 10 MG TABLET (FOR DETOX USE ONLY) ONE (08:47)
[2021-11-06] MEDS: PRENATAL VITAMINS W/ FOLIC ACID TABLET (FP) PO SCH (10:35)
[2021-11-06 12:46] LABS: ALBUMIN 3.2 g/dl (3.4-5.0); BLOOD UREA NITROGEN 12.3 mg/dL (7-18); CALCIUM 8.9 mg/dL (8.5-10.1)
[2021-11-06 12:47] LABS: HEMATOCRIT 37.8 % (35.4-49); HEMOGLOBIN 12.7 GM/dL (11.7-16.9); MCHC 33.6 g/dl (32.0-35.9); MEAN CELL VOLUME 92.4 fl (80-96); MEAN PLT VOLUME 10.9 fl (7.5-11.1); PLATELET COUNT 179 10^3/uL (134-434); RBC 4.09 M/mm3 (4.00-5.60); RDW 13.8 % (11.9-15.9); WHITE BLOOD COUNT 7.6 K/mm3 (4.0-10.0)
[2021-11-06 12:49] LABS: CREATININE 0.8 mg/dL (0.55-1.3)
[2021-11-06 12:51] LABS: BILIRUBIN,TOTAL 0.5 mg/dL (0.2-1); TOT PROT 5.8 g/dl (6.4-8.2)
[2021-11-06] MEDS ORDERED: QUEtiapine FUMARATE 50 MG TABLET PO PRN (22:00)
[2021-11-06] MEDS: MELATONIN 5 MG TABLETS PO PRN (22:38)
[2021-11-06] MEDS: THIAMINE HCL 100 MG TABLET (FP) PO SCH (22:38)
[2021-11-06] MEDS: METHOCARBAMOL 500 MG TABLET PO PRN (22:38)
[2021-11-07] MEDS ORDERED: methaDONE HCL 10 MG TABLET (FOR DETOX USE ONLY) PO ONE (10:00)
[2021-11-07] MEDS: PRENATAL VITAMINS W/ FOLIC ACID TABLET (FP) PO SCH (10:33)
[2021-11-07] MEDS: METHOCARBAMOL 500 MG TABLET PO PRN (10:33)
[2021-11-07 16:08] LABS: SARS-CoV-2 NAA Not Detected (Not Detected)
[2021-11-07] MEDS: MELATONIN 5 MG TABLETS PO PRN (22:35)
[2021-11-07] MEDS: THIAMINE HCL 100 MG TABLET (FP) PO SCH (22:35)
[2021-11-08] MEDS ORDERED: methaDONE HCL 10 MG TABLET (FOR DETOX USE ONLY) ONE (09:55)
[2021-11-08] MEDS: PRENATAL VITAMINS W/ FOLIC ACID TABLET (FP) PO SCH (10:10)
[2021-11-08] MEDS: MELATONIN 5 MG TABLETS PO PRN (22:56)
[2021-11-08] MEDS: GABAPENTIN 100 MG CAPSULE PO SCH (22:57)
[2021-11-08] MEDS: THIAMINE HCL 100 MG TABLET (FP) PO SCH (22:59)
[2021-11-09] MEDS: GABAPENTIN 100 MG CAPSULE PO SCH ×3 (05:43→22:57)
[2021-11-09] MEDS ORDERED: methaDONE HCL 10 MG TABLET (FOR DETOX USE ONLY) PO ONE (10:00)
[2021-11-09] MEDS: PRENATAL VITAMINS W/ FOLIC ACID TABLET (FP) PO SCH (10:38)
[2021-11-09] MEDS: THIAMINE HCL 100 MG TABLET (FP) PO SCH (22:57)
[2021-11-10] MEDS: GABAPENTIN 100 MG CAPSULE PO SCH (06:22)
[2021-11-10 09:19] VITALS: BP 127/61; PULSE 63; TEMP 97.8
== END 2021-11-10 10:00 | disposition home or self-care (01) | DRG 773 ==
LOC: YASAS 16:33 → Y3N 19:24
PROVIDERS: ADMIT Allergy & Immunology; ATTEND Allergy & Immunology
PROC: HZ2ZZZZ Detoxification Services for Substance Abuse Treatment (ICD-10-PCS; principal; 2021-11-05)
DX: F11.23 Opioid dependence with withdrawal (principal); F12.20 Cannabis dependence, uncomplicated; F17.210 Nicotine dependence, cigarettes, uncomplicated; F19.282 Other psychoactive substance dependence with psychoactive substance-induced sleep disorder; F19.24 Other psychoactive substance dependence with psychoactive substance-induced mood disorder; F43.10 Post-traumatic stress disorder, unspecified; F60.3 Borderline personality disorder; M54.50 Low back pain, unspecified; Z56.0 Unemployment, unspecified; Z59.00 Homelessness unspecified
CPT/HCPCS: 36415; 73562-TC-RT-FY; 80053; 85027; 86780; C9803-CS; J0735; U0003; U0005

== ENCOUNTER 2021-11-25 06:01 | Inpatient (IN) | payer OTHER ==
[2021-11-25 06:06] VITALS: BMI 36.2
[2021-11-25] MEDS ORDERED: IBUPROFEN 600 MG TABLET (FP) PO PRN (09:24)
[2021-11-25] MEDS ORDERED: MAG HYDROX/AL HYDROX/SIMETH 30 ML UNIT-DOSE CUP PO PRN (09:24)
[2021-11-25] MEDS ORDERED: MAGNESIUM HYDROX 2400MG/30ML ORAL SUSPENSION 30 ML CUP PO PRN (09:24)
[2021-11-25] MEDS ORDERED: BENZOCAINE/MENTHOL (CHLORASEPTIC ) LOZENGE MM PRN (09:24)
[2021-11-25] MEDS ORDERED: DICYCLOMINE HCL 10 MG CAPSULE PO PRN (09:24)
[2021-11-25] MEDS ORDERED: IBUPROFEN 400 MG TABLET (FP) PO PRN (09:24)
[2021-11-25] MEDS ORDERED: NALOXONE HCL (KLOXXADO) 8 MG SPRAY NS PRN (09:24)
[2021-11-25] MEDS ORDERED: NICOTINE 10 MG CARTRIDGE (INHALER) IH PRN (09:24)
[2021-11-25] MEDS ORDERED: MAGNESIUM CITRATE 300 ML BOTTLE PO PRN (09:24)
[2021-11-25] MEDS ORDERED: ONDANSETRON *ODT* 4 MG TABLET SL PRN (09:24)
[2021-11-25] MEDS ORDERED: cloNIDine HCL 0.1 MG TABLET PO PRN (09:24)
[2021-11-25] MEDS ORDERED: ACETAMINOPHEN 325 MG TABLET (FP) PO PRN ×2 (09:24)
[2021-11-25] MEDS ORDERED: BISMUTH SUBSALICYLATE 524 MG/30 ML PO PRN (09:24)
[2021-11-25] MEDS ORDERED: LOPERAMIDE HCL 2 MG CAPSULE PO PRN (09:24)
[2021-11-25] MEDS ORDERED: ALBUTEROL SO4 HFA INHALER IH PRN (09:27)
[2021-11-25] MEDS ORDERED: methaDONE HCL 10 MG TABLET (FOR DETOX USE ONLY) PO ONE (10:45)
[2021-11-25] MEDS: METHOCARBAMOL 500 MG TABLET PO PRN ×2 (11:35→22:33)
[2021-11-25] MEDS: PRENATAL VITAMINS W/ FOLIC ACID TABLET (FP) PO SCH (11:35)
[2021-11-25] MEDS: hydrOXYzine PAMOATE 25 MG CAPSULE (FP) PO SCH ×4 (11:35→22:34)
[2021-11-25] MEDS: NICOTINE 7 MG/24 HOURS TOPICAL PATCH TD SCH (11:35)
[2021-11-25] MEDS: MELATONIN 5 MG TABLETS PO SCH (22:33)
[2021-11-25] MEDS: THIAMINE HCL 100 MG TABLET (FP) PO SCH (22:33)
[2021-11-26] MEDS: hydrOXYzine PAMOATE 25 MG CAPSULE (FP) PO SCH ×5 (06:34→23:26)
[2021-11-26] MEDS ORDERED: methaDONE HCL 10 MG TABLET (FOR DETOX USE ONLY) ONE (09:15)
[2021-11-26] MEDS: NICOTINE 7 MG/24 HOURS TOPICAL PATCH TD SCH (10:36)
[2021-11-26] MEDS: PRENATAL VITAMINS W/ FOLIC ACID TABLET (FP) PO SCH (10:37)
[2021-11-26 10:39] LABS: HEMATOCRIT 39.3 % (35.4-49); HEMOGLOBIN 13.3 GM/dL (11.7-16.9); MCH 30.8 pg (25.7-33.7); MCHC 33.7 g/dl (32.0-35.9); MEAN CELL VOLUME 91.2 fl (80-96); MEAN PLT VOLUME 11.2 fl (7.5-11.1); PLATELET COUNT 108 10^3/uL (134-434); RBC 4.31 M/mm3 (4.00-5.60); RDW 13.2 % (11.9-15.9); WHITE BLOOD COUNT 3.7 K/mm3 (4.0-10.0)
[2021-11-26 10:56] LABS: ALBUMIN 3.4 g/dl (3.4-5.0); CREATININE 0.8 mg/dL (0.55-1.3)
[2021-11-26 10:59] LABS: CALCIUM 8.6 mg/dL (8.5-10.1); TOT PROT 6.2 g/dl (6.4-8.2)
[2021-11-26] MEDS: METHOCARBAMOL 500 MG TABLET PO PRN (17:41)
[2021-11-26] MEDS: MELATONIN 5 MG TABLETS PO SCH (22:21)
[2021-11-26] MEDS: THIAMINE HCL 100 MG TABLET (FP) PO SCH (22:21)
[2021-11-27] MEDS: hydrOXYzine PAMOATE 25 MG CAPSULE (FP) PO SCH ×5 (05:56→22:26)
[2021-11-27] MEDS ORDERED: methaDONE HCL 10 MG TABLET (FOR DETOX USE ONLY) PO ONE (10:00)
[2021-11-27] MEDS: PRENATAL VITAMINS W/ FOLIC ACID TABLET (FP) PO SCH (10:03)
[2021-11-27] MEDS: METHOCARBAMOL 500 MG TABLET PO PRN ×2 (10:03→22:26)
[2021-11-27] MEDS: NICOTINE 7 MG/24 HOURS TOPICAL PATCH TD SCH (10:05)
[2021-11-27] MEDS: THIAMINE HCL 100 MG TABLET (FP) PO SCH (22:26)
[2021-11-27] MEDS: MELATONIN 5 MG TABLETS PO SCH (22:26)
[2021-11-28] MEDS: hydrOXYzine PAMOATE 25 MG CAPSULE (FP) PO SCH ×5 (06:05→22:06)
[2021-11-28] MEDS ORDERED: methaDONE HCL 10 MG TABLET (FOR DETOX USE ONLY) ONE (09:11)
[2021-11-28] MEDS: PRENATAL VITAMINS W/ FOLIC ACID TABLET (FP) PO SCH (10:28)
[2021-11-28] MEDS: METHOCARBAMOL 500 MG TABLET PO PRN ×2 (10:28→22:06)
[2021-11-28] MEDS: NICOTINE 7 MG/24 HOURS TOPICAL PATCH TD SCH (10:29)
[2021-11-28] MEDS: diazePAM 5 MG TABLET PO PRN ×2 (15:26→22:06)
[2021-11-28] MEDS: THIAMINE HCL 100 MG TABLET (FP) PO SCH (22:06)
[2021-11-28] MEDS: MELATONIN 5 MG TABLETS PO SCH (22:06)
[2021-11-29] MEDS: hydrOXYzine PAMOATE 25 MG CAPSULE (FP) PO SCH ×5 (05:44→22:47)
[2021-11-29] MEDS ORDERED: methaDONE HCL 10 MG TABLET (FOR DETOX USE ONLY) PO ONE (10:00)
[2021-11-29] MEDS: PRENATAL VITAMINS W/ FOLIC ACID TABLET (FP) PO SCH (10:39)
[2021-11-29] MEDS: METHOCARBAMOL 500 MG TABLET PO PRN (10:40)
[2021-11-29] MEDS: NICOTINE 7 MG/24 HOURS TOPICAL PATCH TD SCH (10:40)
[2021-11-29] MEDS: MELATONIN 5 MG TABLETS PO SCH (22:47)
[2021-11-29] MEDS: THIAMINE HCL 100 MG TABLET (FP) PO SCH (22:47)
[2021-11-30] MEDS: hydrOXYzine PAMOATE 25 MG CAPSULE (FP) PO SCH (05:58)
[2021-11-30 09:30] VITALS: BP 123/65; PULSE 60; TEMP 97.5
== END 2021-11-30 09:59 | disposition home or self-care (01) | DRG 773 ==
LOC: YASAS 06:01 → Y6N 09:58
PROVIDERS: ADMIT Allergy & Immunology; ATTEND Surgery
PROC: HZ2ZZZZ Detoxification Services for Substance Abuse Treatment (ICD-10-PCS; principal; 2021-11-25)
DX: F11.23 Opioid dependence with withdrawal (principal); F10.10 Alcohol abuse, uncomplicated; F12.20 Cannabis dependence, uncomplicated; F17.210 Nicotine dependence, cigarettes, uncomplicated; F19.282 Other psychoactive substance dependence with psychoactive substance-induced sleep disorder; F19.24 Other psychoactive substance dependence with psychoactive substance-induced mood disorder; F41.9 Anxiety disorder, unspecified; F32.A Depression, unspecified; F43.10 Post-traumatic stress disorder, unspecified; F60.3 Borderline personality disorder; J45.909 Unspecified asthma, uncomplicated; M54.50 Low back pain, unspecified; G89.29 Other chronic pain; R74.01 Elevation of levels of liver transaminase levels; Z88.8 Allergy status to other drugs, medicaments and biological substances; Z59.00 Homelessness unspecified
CPT/HCPCS: 36415; 80053; 85027; 86780; 87811; 90853; 93005; 93010; C9803-CS; J0735; U0003; U0005

== ENCOUNTER 2021-11-25 17:57 | Emergency (ER) | payer OTHER ==
[2021-11-25 18:36] VITALS: BP 146/62; PULSE 82; BMI 26.4
[2021-11-25] MEDS ORDERED: ACETAMINOPHEN 500 MG TABLET (FP) PO ONE (19:28)
[2021-11-25] MEDS ORDERED: IBUPROFEN 600 MG TABLET (FP) PO ONE ×2 (19:28→19:57)
[2021-11-25] MEDS ORDERED: ACETAMINOPHEN 500 MG TABLET (FP) ONE (19:57)
[2021-11-25 21:34] VITALS: TEMP 99.2
== END 2021-11-25 21:20 ==
LOC: JER 17:57
DX: R50.9 Fever, unspecified (principal); R51.9 Headache, unspecified
CPT/HCPCS: 0241U-QW; 71046-TC-FY; 99283-25

== ENCOUNTER 2021-12-06 20:36 | Inpatient (IN) | payer OTHER ==
[2021-12-06] MEDS ORDERED: NICOTINE POLACRILEX 2 MG GUM BUC PRN (23:46)
[2021-12-06] MEDS ORDERED: BENZOCAINE/MENTHOL (CHLORASEPTIC ) LOZENGE MM PRN (23:46)
[2021-12-06] MEDS ORDERED: MELATONIN 5 MG TABLETS PO PRN (23:46)
[2021-12-06] MEDS ORDERED: MAGNESIUM CITRATE 300 ML BOTTLE PO PRN (23:46)
[2021-12-06] MEDS ORDERED: METHOCARBAMOL 500 MG TABLET PO PRN (23:46)
[2021-12-06] MEDS ORDERED: IBUPROFEN 400 MG TABLET (FP) PO PRN (23:46)
[2021-12-06] MEDS ORDERED: IBUPROFEN 600 MG TABLET (FP) PO PRN (23:46)
[2021-12-06] MEDS ORDERED: LOPERAMIDE HCL 2 MG CAPSULE PO PRN (23:46)
[2021-12-06] MEDS ORDERED: MAG HYDROX/AL HYDROX/SIMETH 30 ML UNIT-DOSE CUP PO PRN (23:46)
[2021-12-06] MEDS ORDERED: MAGNESIUM HYDROX 2400MG/30ML ORAL SUSPENSION 30 ML CUP PO PRN (23:46)
[2021-12-06] MEDS ORDERED: hydrOXYzine PAMOATE 25 MG CAPSULE (FP) PO PRN (23:46)
[2021-12-06] MEDS ORDERED: ONDANSETRON *ODT* 4 MG TABLET SL PRN (23:46)
[2021-12-06] MEDS ORDERED: DICYCLOMINE HCL 10 MG CAPSULE PO PRN (23:46)
[2021-12-06] MEDS ORDERED: NICOTINE 10 MG CARTRIDGE (INHALER) IH PRN (23:46)
[2021-12-06] MEDS ORDERED: BISMUTH SUBSALICYLATE 524 MG/30 ML PO PRN (23:46)
[2021-12-06] MEDS ORDERED: ACETAMINOPHEN 325 MG TABLET (FP) PO PRN ×2 (23:46)
[2021-12-06] MEDS ORDERED: P-EPHED 60MG/TRIPROLIDI 2.5MG TABLET PO PRN (23:46)
[2021-12-07 01:23] VITALS: BMI 26.9
[2021-12-07] MEDS ORDERED: BUPRENORPHINE HCL 150 MCG, BUPRENORPHINE HCL 75 MCG BC PRN (09:39)
[2021-12-07] MEDS ORDERED: BUPRENORPHINE HCL 150 MCG FILM BC ONE ×2 (09:43→17:44)
[2021-12-07] MEDS ORDERED: BUPRENORPHINE HCL 75 MCG FILM BC ONE ×2 (09:43→17:45)
[2021-12-07] MEDS ORDERED: cloNIDine HCL 0.1 MG TABLET PO ONE (10:00)
[2021-12-07] MEDS ORDERED: BUPRENORPHINE HCL 150 MCG, BUPRENORPHINE HCL 75 MCG BC ONE (10:00)
[2021-12-07 10:25] LABS: HEMATOCRIT 36.4 % (35.4-49); HEMOGLOBIN 12.4 GM/dL (11.7-16.9); MCH 30.8 pg (25.7-33.7); MCHC 33.9 g/dl (32.0-35.9); MEAN CELL VOLUME 90.9 fl (80-96); MEAN PLT VOLUME 9.9 fl (7.5-11.1); PLATELET COUNT 199 10^3/uL (134-434); RBC 4.01 M/mm3 (4.00-5.60); RDW 13.9 % (11.9-15.9); WHITE BLOOD COUNT 8.3 K/mm3 (4.0-10.0)
[2021-12-07] MEDS: PRENATAL VITAMINS W/ FOLIC ACID TABLET (FP) PO SCH (10:41)
[2021-12-07] MEDS: GABAPENTIN 100 MG CAPSULE PO SCH (10:43)
[2021-12-07 11:22] LABS: ALBUMIN 3.5 g/dl (3.4-5.0); BLOOD UREA NITROGEN 13.8 mg/dL (7-18); CALCIUM 9.2 mg/dL (8.5-10.1)
[2021-12-07 11:25] LABS: CREATININE 0.9 mg/dL (0.55-1.3)
[2021-12-07 11:27] LABS: BILIRUBIN,TOTAL 0.7 mg/dL (0.2-1); TOT PROT 6.5 g/dl (6.4-8.2)
[2021-12-07 11:39] LABS: HIV INTERPRETATION NEGATIVE (NEGATIVE)
[2021-12-07] MEDS ORDERED: cloNIDine HCL 0.1 MG TABLET PO PRN (13:39)
[2021-12-07] MEDS: diazePAM 5 MG TABLET PO PRN ×2 (17:45→22:46)
[2021-12-07] MEDS ORDERED: THIAMINE HCL 100 MG TABLET (FP) PO SCH (22:00)
[2021-12-08] MEDS ORDERED: BUPRENORPHINE HCL 150 MCG, BUPRENORPHINE HCL 75 MCG BC PRN
[2021-12-08] MEDS ORDERED: BUPRENORPHINE HCL 150 MCG FILM BC ONE (04:34)
[2021-12-08] MEDS ORDERED: BUPRENORPHINE HCL 75 MCG FILM BC ONE (04:34)
[2021-12-08] MEDS ORDERED: BUPRENORPHINE HCL 150 MCG, BUPRENORPHINE HCL 75 MCG BC SCH (06:00)
[2021-12-08 09:36] VITALS: BP 132/68; PULSE 68; TEMP 96.9
[2021-12-08] MEDS: GABAPENTIN 100 MG CAPSULE PO SCH (10:12)
[2021-12-08] MEDS: PRENATAL VITAMINS W/ FOLIC ACID TABLET (FP) PO SCH (11:03)
[2021-12-09] MEDS ORDERED: BUPRENORPHINE HCL 450 MCG FILM BC SCH (06:00)
[2021-12-10] MEDS ORDERED: BUPRENORPHINE/NALOXONE 4 MG/1 MG FILM PACKET SL SCH (06:00)
[2021-12-11] MEDS ORDERED: BUPRENORPHINE/NALOXONE 8 MG/2 MG FILM PACKET SL ONE (06:00)
== END 2021-12-08 10:23 | disposition left against medical advice (07) | DRG 770 ==
LOC: YASAS 20:36 → Y6N 12-07 09:22
PROVIDERS: ADMIT Allergy & Immunology; ATTEND Surgery
PROC: HZ2ZZZZ Detoxification Services for Substance Abuse Treatment (ICD-10-PCS; principal; 2021-12-07)
DX: F11.23 Opioid dependence with withdrawal (principal); F16.20 Hallucinogen dependence, uncomplicated; F12.20 Cannabis dependence, uncomplicated; F13.10 Sedative, hypnotic or anxiolytic abuse, uncomplicated; F17.210 Nicotine dependence, cigarettes, uncomplicated; F43.10 Post-traumatic stress disorder, unspecified; F90.9 Attention-deficit hyperactivity disorder, unspecified type; J45.909 Unspecified asthma, uncomplicated; M54.50 Low back pain, unspecified; G89.29 Other chronic pain; R00.1 Bradycardia, unspecified; Z56.0 Unemployment, unspecified; Z59.00 Homelessness unspecified
CPT/HCPCS: 36415; 80053; 85027; 86780; 87389; 87811; C9803-CS; J0735; U0003; U0005

== ENCOUNTER 2021-12-10 13:18 | Inpatient (IN) | payer OTHER ==
[2021-12-10] MEDS ORDERED: IBUPROFEN 400 MG TABLET (FP) PO PRN (14:30)
[2021-12-10] MEDS ORDERED: BUPRENORPHINE HCL 150 MCG, BUPRENORPHINE HCL 75 MCG BC PRN (14:30)
[2021-12-10] MEDS ORDERED: MAGNESIUM HYDROX 2400MG/30ML ORAL SUSPENSION 30 ML CUP PO PRN (14:30)
[2021-12-10] MEDS ORDERED: IBUPROFEN 600 MG TABLET (FP) PO PRN (14:30)
[2021-12-10] MEDS ORDERED: ACETAMINOPHEN 325 MG TABLET (FP) PO PRN ×2 (14:30)
[2021-12-10] MEDS ORDERED: ONDANSETRON *ODT* 4 MG TABLET SL PRN (14:30)
[2021-12-10] MEDS ORDERED: BISMUTH SUBSALICYLATE 524 MG/30 ML PO PRN (14:30)
[2021-12-10] MEDS ORDERED: DICYCLOMINE HCL 10 MG CAPSULE PO PRN (14:30)
[2021-12-10] MEDS ORDERED: LOPERAMIDE HCL 2 MG CAPSULE PO PRN (14:30)
[2021-12-10] MEDS ORDERED: BENZOCAINE/MENTHOL (CHLORASEPTIC ) LOZENGE MM PRN (14:30)
[2021-12-10] MEDS ORDERED: NICOTINE 10 MG CARTRIDGE (INHALER) IH PRN (14:30)
[2021-12-10] MEDS ORDERED: cloNIDine HCL 0.1 MG TABLET PO ONE (14:30)
[2021-12-10] MEDS ORDERED: BUPRENORPHINE HCL 150 MCG, BUPRENORPHINE HCL 75 MCG BC ONE (14:30)
[2021-12-10] MEDS ORDERED: MAGNESIUM CITRATE 300 ML BOTTLE PO PRN (14:30)
[2021-12-10] MEDS ORDERED: METHOCARBAMOL 500 MG TABLET PO PRN (14:30)
[2021-12-10] MEDS ORDERED: MAG HYDROX/AL HYDROX/SIMETH 30 ML UNIT-DOSE CUP PO PRN (14:30)
[2021-12-10 14:57] VITALS: BMI 26.9
[2021-12-10] MEDS ORDERED: cloNIDine HCL 0.1 MG TABLET PO PRN (18:31)
[2021-12-10] MEDS ORDERED: BUPRENORPHINE HCL 150 MCG FILM BC ONE (21:18)
[2021-12-10] MEDS ORDERED: BUPRENORPHINE HCL 75 MCG FILM BC ONE (21:19)
[2021-12-10] MEDS: THIAMINE HCL 100 MG TABLET (FP) PO SCH (21:20)
[2021-12-10] MEDS: diazePAM 5 MG TABLET PO PRN (21:23)
[2021-12-10] MEDS: hydrOXYzine PAMOATE 25 MG CAPSULE (FP) PO SCH ×2 (21:28→22:38)
[2021-12-10] MEDS: LIDOCAINE 5% TOPICAL PATCH TP SCH (21:28)
[2021-12-10] MEDS: LIDOCAINE PATCH REMOVAL MC SCH (21:29)
[2021-12-10] MEDS ORDERED: MELATONIN 5 MG TABLETS PO SCH (22:00)
[2021-12-11] MEDS ORDERED: BUPRENORPHINE HCL 150 MCG, BUPRENORPHINE HCL 75 MCG BC PRN
[2021-12-11] MEDS ORDERED: BUPRENORPHINE HCL 150 MCG FILM BC ONE ×2 (04:09→17:31)
[2021-12-11] MEDS ORDERED: BUPRENORPHINE HCL 75 MCG FILM BC ONE ×2 (04:10→17:32)
[2021-12-11] MEDS: hydrOXYzine PAMOATE 25 MG CAPSULE (FP) PO SCH ×5 (05:45→22:36)
[2021-12-11] MEDS: BUPRENORPHINE HCL 150 MCG, BUPRENORPHINE HCL 75 MCG BC SCH ×2 (05:46→17:58)
[2021-12-11 10:03] LABS: HEMATOCRIT 38.2 % (35.4-49); HEMOGLOBIN 13.2 GM/dL (11.7-16.9); MCH 31.4 pg (25.7-33.7); MCHC 34.5 g/dl (32.0-35.9); MEAN CELL VOLUME 90.9 fl (80-96); MEAN PLT VOLUME 10.6 fl (7.5-11.1); PLATELET COUNT 185 10^3/uL (134-434); RDW 13.3 % (11.9-15.9); WHITE BLOOD COUNT 5.4 K/mm3 (4.0-10.0)
[2021-12-11 10:19] LABS: CALCIUM 8.6 mg/dL (8.5-10.1)
[2021-12-11 10:20] LABS: ALBUMIN 3.2 g/dl (3.4-5.0); BLOOD UREA NITROGEN 13.1 mg/dL (7-18)
[2021-12-11 10:23] LABS: CREATININE 0.8 mg/dL (0.55-1.3)
[2021-12-11 10:24] LABS: TOT PROT 6.4 g/dl (6.4-8.2)
[2021-12-11] MEDS ORDERED: QUEtiapine FUMARATE 100 MG TABLET (FP) PO PRN (11:02)
[2021-12-11] MEDS: diazePAM 5 MG TABLET PO PRN (11:09)
[2021-12-11] MEDS: LIDOCAINE 5% TOPICAL PATCH TP SCH (11:10)
[2021-12-11] MEDS: PRENATAL VITAMINS W/ FOLIC ACID TABLET (FP) PO SCH (11:10)
[2021-12-11] MEDS ORDERED: GABAPENTIN 100 MG CAPSULE PO SCH (22:00)
[2021-12-11] MEDS ORDERED: QUEtiapine FUMARATE 100 MG TABLET (FP) PO SCH (22:00)
[2021-12-11] MEDS: GABAPENTIN 100 MG CAPSULE PO SCH (22:35)
[2021-12-11] MEDS: THIAMINE HCL 100 MG TABLET (FP) PO SCH (22:35)
[2021-12-11] MEDS: LIDOCAINE PATCH REMOVAL MC SCH (22:36)
[2021-12-12] MEDS: BUPRENORPHINE HCL 450 MCG FILM BC SCH ×2 (06:10→17:27)
[2021-12-12] MEDS: hydrOXYzine PAMOATE 25 MG CAPSULE (FP) PO SCH ×5 (06:12→22:17)
[2021-12-12] MEDS: LIDOCAINE 5% TOPICAL PATCH TP SCH (10:06)
[2021-12-12] MEDS: PRENATAL VITAMINS W/ FOLIC ACID TABLET (FP) PO SCH (10:07)
[2021-12-12] MEDS: GABAPENTIN 100 MG CAPSULE PO SCH ×2 (10:07→22:17)
[2021-12-12] MEDS: diazePAM 5 MG TABLET PO PRN (10:07)
[2021-12-12] MEDS: THIAMINE HCL 100 MG TABLET (FP) PO SCH (22:17)
[2021-12-12] MEDS: LIDOCAINE PATCH REMOVAL MC SCH (22:17)
[2021-12-13] MEDS: BUPRENORPHINE/NALOXONE 4 MG/1 MG FILM PACKET SL SCH ×2 (05:10→18:15)
[2021-12-13] MEDS: hydrOXYzine PAMOATE 25 MG CAPSULE (FP) PO SCH ×6 (05:10→22:17)
[2021-12-13] MEDS: LIDOCAINE 5% TOPICAL PATCH TP SCH (10:40)
[2021-12-13] MEDS: GABAPENTIN 100 MG CAPSULE PO SCH ×2 (10:41→22:17)
[2021-12-13] MEDS: PRENATAL VITAMINS W/ FOLIC ACID TABLET (FP) PO SCH (10:41)
[2021-12-13] MEDS: THIAMINE HCL 100 MG TABLET (FP) PO SCH (22:17)
[2021-12-13] MEDS: LIDOCAINE PATCH REMOVAL MC SCH (22:18)
[2021-12-14] MEDS: hydrOXYzine PAMOATE 25 MG CAPSULE (FP) PO SCH ×2 (05:37→10:12)
[2021-12-14] MEDS ORDERED: BUPRENORPHINE/NALOXONE 8 MG/2 MG FILM PACKET SL ONE (06:00)
[2021-12-14 06:19] VITALS: BP 115/65; PULSE 65; TEMP 97.5
[2021-12-14] MEDS: LIDOCAINE 5% TOPICAL PATCH TP SCH (10:12)
[2021-12-14] MEDS: GABAPENTIN 100 MG CAPSULE PO SCH (10:12)
[2021-12-14] MEDS: PRENATAL VITAMINS W/ FOLIC ACID TABLET (FP) PO SCH (10:12)
== END 2021-12-14 10:29 | disposition home or self-care (01) | DRG 773 ==
LOC: YASAS 13:18 → Y6N 19:24
PROVIDERS: ADMIT Surgery; ATTEND Allergy & Immunology
PROC: HZ2ZZZZ Detoxification Services for Substance Abuse Treatment (ICD-10-PCS; principal; 2021-12-10)
DX: F11.23 Opioid dependence with withdrawal (principal); F16.20 Hallucinogen dependence, uncomplicated; F12.20 Cannabis dependence, uncomplicated; F17.213 Nicotine dependence, cigarettes, with withdrawal; F60.3 Borderline personality disorder; F90.9 Attention-deficit hyperactivity disorder, unspecified type; F43.10 Post-traumatic stress disorder, unspecified; F41.9 Anxiety disorder, unspecified; F32.A Depression, unspecified; F19.24 Other psychoactive substance dependence with psychoactive substance-induced mood disorder; J45.909 Unspecified asthma, uncomplicated; M54.59 Other low back pain; G89.29 Other chronic pain; Z91.51 Personal history of suicidal behavior; Z56.0 Unemployment, unspecified; Z59.00 Homelessness unspecified
CPT/HCPCS: 36415; 80053; 85027; 86780; C9803-CS; J0735; U0003; U0005

== ENCOUNTER 2022-01-15 20:36 | Emergency (ER) | payer OTHER ==
[2022-01-15 20:46] VITALS: BP 137/67; PULSE 76; RESP 18; TEMP 98.6; BMI 25.1
[2022-01-15] MEDS ORDERED: BACITRACIN 15 GM TUBE TOPICAL OINTMENT ONE (21:41)
[2022-01-15] MEDS ORDERED: BACITRACIN 0.9 GM PACKET TP ONE (21:46)
== END 2022-01-15 21:57 | disposition home or self-care (01) ==
LOC: JERFT 20:36
DX: S01.21XA Laceration without foreign body of nose, initial encounter (principal); H66.92 Otitis media, unspecified, left ear; H60.501 Unspecified acute noninfective otitis externa, right ear; W22.8XXA Striking against or struck by other objects, initial encounter
CPT/HCPCS: 99283-25; C9803-CS; U0003; U0005

== ENCOUNTER 2022-01-28 20:08 | Inpatient (IN) | payer OTHER ==
[2022-01-28 20:57] VITALS: BMI 25.8
[2022-01-28] MEDS ORDERED: IBUPROFEN 600 MG TABLET (FP) PO PRN (21:14)
[2022-01-28] MEDS ORDERED: METHOCARBAMOL 500 MG TABLET PO PRN (21:14)
[2022-01-28] MEDS ORDERED: PROCHLORPERAZINE MALEATE 5 MG TABLET PO PRN (21:14)
[2022-01-28] MEDS ORDERED: DICYCLOMINE HCL 10 MG CAPSULE PO PRN (21:14)
[2022-01-28] MEDS ORDERED: NALOXONE HCL 0.4 MG/ML VIAL IM PRN (21:14)
[2022-01-28] MEDS ORDERED: NICOTINE POLACRILEX 2 MG GUM BUC PRN (21:14)
[2022-01-28] MEDS ORDERED: MAGNESIUM CITRATE 300 ML BOTTLE PO PRN (21:14)
[2022-01-28] MEDS ORDERED: BENZOCAINE/MENTHOL (CHLORASEPTIC ) LOZENGE MM PRN (21:14)
[2022-01-28] MEDS ORDERED: IBUPROFEN 400 MG TABLET (FP) PO PRN (21:14)
[2022-01-28] MEDS ORDERED: ACETAMINOPHEN 325 MG TABLET (FP) PO PRN ×2 (21:14)
[2022-01-28] MEDS ORDERED: MAGNESIUM HYDROX 2400MG/30ML ORAL SUSPENSION 30 ML CUP PO PRN (21:14)
[2022-01-28] MEDS ORDERED: guaiFENesin 200 MG/10 ML 10 ML UNIT-DOSE CUPS PO PRN (21:14)
[2022-01-28] MEDS ORDERED: NALOXONE HCL (KLOXXADO) 8 MG SPRAY NS PRN (21:14)
[2022-01-28] MEDS ORDERED: LOPERAMIDE HCL 2 MG CAPSULE PO PRN (21:14)
[2022-01-28] MEDS ORDERED: P-EPHED 60MG/TRIPROLIDI 2.5MG TABLET PO PRN (21:14)
[2022-01-28] MEDS ORDERED: BISMUTH SUBSALICYLATE 524 MG/30 ML PO PRN (21:14)
[2022-01-28] MEDS ORDERED: MAG HYDROX/AL HYDROX/SIMETH 30 ML UNIT-DOSE CUP PO PRN (21:14)
[2022-01-28] MEDS ORDERED: diazePAM 5 MG TABLET PO PRN (21:17)
[2022-01-28] MEDS: MELATONIN 5 MG TABLETS PO SCH (23:00)
[2022-01-28] MEDS: THIAMINE HCL 100 MG TABLET (FP) PO SCH (23:00)
[2022-01-29] MEDS ORDERED: cloNIDine HCL 0.1 MG TABLET PO PRN (07:48)
[2022-01-29] MEDS ORDERED: methaDONE HCL 10 MG TABLET (FOR DETOX USE ONLY) PO ONE (07:48)
[2022-01-29] MEDS ORDERED: NICOTINE 14 MG/24 HOURS TOPICAL PATCH TD SCH (10:00)
[2022-01-29] MEDS ORDERED: PRENATAL VITAMINS W/ FOLIC ACID TABLET (FP) PO SCH (10:00)
[2022-01-29 10:36] LABS: ALBUMIN 3.1 g/dl (3.4-5.0); BLOOD UREA NITROGEN 11.1 mg/dL (7-18); CALCIUM 8.9 mg/dL (8.5-10.1)
[2022-01-29 10:38] LABS: HEMATOCRIT 38.2 % (35.4-49); HEMOGLOBIN 13.2 GM/dL (11.7-16.9); MCH 30.6 pg (25.7-33.7); MCHC 34.5 g/dl (32.0-35.9); MEAN CELL VOLUME 88.6 fl (80-96); MEAN PLT VOLUME 9.9 fl (7.5-11.1); PLATELET COUNT 190 10^3/uL (134-434); RBC 4.31 M/mm3 (4.00-5.60); RDW 13.5 % (11.9-15.9); WHITE BLOOD COUNT 6.9 K/mm3 (4.0-10.0)
[2022-01-29 10:39] LABS: CREATININE 0.8 mg/dL (0.55-1.3)
[2022-01-29 10:41] LABS: BILIRUBIN,TOTAL 0.5 mg/dL (0.2-1); TOT PROT 6.2 g/dl (6.4-8.2)
[2022-01-29 11:25] LABS: HIV INTERPRETATION NEGATIVE (NEGATIVE)
[2022-01-29] MEDS ORDERED: QUEtiapine FUMARATE 100 MG TABLET (FP) PO SCH (22:00)
[2022-01-29] MEDS: MELATONIN 5 MG TABLETS PO SCH (23:10)
[2022-01-29] MEDS: THIAMINE HCL 100 MG TABLET (FP) PO SCH (23:10)
[2022-01-30 08:58] VITALS: BP 132/71; PULSE 57; RESP 19; TEMP 97.7
[2022-01-31] MEDS ORDERED: methaDONE HCL 10 MG TABLET (FOR DETOX USE ONLY) PO ONE (10:00)
[2022-02-02] MEDS ORDERED: methaDONE HCL 10 MG TABLET (FOR DETOX USE ONLY) PO ONE (10:00)
== END 2022-01-30 09:27 | disposition left against medical advice (07) | DRG 770 ==
LOC: YASAS 20:08 → Y3N 22:45
PROVIDERS: ADMIT Allergy & Immunology; ATTEND Surgery
PROC: HZ2ZZZZ Detoxification Services for Substance Abuse Treatment (ICD-10-PCS; principal; 2022-01-28)
DX: F11.23 Opioid dependence with withdrawal (principal); F14.20 Cocaine dependence, uncomplicated; F16.20 Hallucinogen dependence, uncomplicated; F12.20 Cannabis dependence, uncomplicated; F15.10 Other stimulant abuse, uncomplicated; F17.219 Nicotine dependence, cigarettes, with unspecified nicotine-induced disorders; F90.9 Attention-deficit hyperactivity disorder, unspecified type; F43.10 Post-traumatic stress disorder, unspecified; F19.24 Other psychoactive substance dependence with psychoactive substance-induced mood disorder; F19.282 Other psychoactive substance dependence with psychoactive substance-induced sleep disorder; F19.280 Other psychoactive substance dependence with psychoactive substance-induced anxiety disorder; J45.909 Unspecified asthma, uncomplicated; M54.59 Other low back pain; G89.29 Other chronic pain; Z87.828 Personal history of other (healed) physical injury and trauma; Z86.19 Personal history of other infectious and parasitic diseases; Z91.51 Personal history of suicidal behavior; Z56.0 Unemployment, unspecified; Z59.00 Homelessness unspecified
CPT/HCPCS: 36415; 80053; 85027; 86780; 87389; 87811; C9803-CS; U0003; U0005

== ENCOUNTER 2022-04-11 15:27 | Inpatient (IN) | payer OTHER ==
[2022-04-11 17:12] VITALS: BMI 21.7
[2022-04-11] MEDS ORDERED: NALOXONE HCL 0.4 MG/ML VIAL IM PRN (19:51)
[2022-04-11] MEDS ORDERED: ACETAMINOPHEN 325 MG TABLET (FP) PO PRN ×2 (19:51)
[2022-04-11] MEDS ORDERED: MELATONIN 5 MG TABLETS PO PRN (19:51)
[2022-04-11] MEDS ORDERED: METHOCARBAMOL 500 MG TABLET PO PRN (19:51)
[2022-04-11] MEDS ORDERED: LOPERAMIDE HCL 2 MG CAPSULE PO PRN (19:51)
[2022-04-11] MEDS ORDERED: NALOXONE HCL (KLOXXADO) 8 MG SPRAY NS PRN (19:51)
[2022-04-11] MEDS ORDERED: guaiFENesin 200 MG/10 ML 10 ML UNIT-DOSE CUPS PO PRN (19:51)
[2022-04-11] MEDS ORDERED: DICYCLOMINE HCL 10 MG CAPSULE PO PRN (19:51)
[2022-04-11] MEDS ORDERED: ONDANSETRON *ODT* 4 MG TABLET SL PRN (19:51)
[2022-04-11] MEDS ORDERED: MAGNESIUM CITRATE 300 ML BOTTLE PO PRN (19:51)
[2022-04-11] MEDS ORDERED: hydrOXYzine PAMOATE 25 MG CAPSULE (FP) PO PRN (19:51)
[2022-04-11] MEDS ORDERED: BENZOCAINE/MENTHOL (CHLORASEPTIC ) LOZENGE MM PRN (19:51)
[2022-04-11] MEDS ORDERED: IBUPROFEN 400 MG TABLET (FP) PO PRN (19:51)
[2022-04-11] MEDS ORDERED: BISMUTH SUBSALICYLATE 524 MG/30 ML PO PRN (19:51)
[2022-04-11] MEDS ORDERED: IBUPROFEN 600 MG TABLET (FP) PO PRN (19:51)
[2022-04-11] MEDS ORDERED: NICOTINE 7 MG/24 HOURS TOPICAL PATCH TD PRN (19:51)
[2022-04-11] MEDS ORDERED: MAGNESIUM HYDROX 2400MG/30ML ORAL SUSPENSION 30 ML CUP PO PRN (19:51)
[2022-04-11] MEDS ORDERED: MAG HYDROX/AL HYDROX/SIMETH 30 ML UNIT-DOSE CUP PO PRN (19:51)
[2022-04-11] MEDS ORDERED: P-EPHED 60MG/TRIPROLIDI 2.5MG TABLET PO PRN (19:51)
[2022-04-11] MEDS ORDERED: methaDONE HCL 10 MG TABLET (FOR DETOX USE ONLY) PO ONE (19:53)
[2022-04-11] MEDS ORDERED: cloNIDine HCL 0.1 MG TABLET PO PRN (19:53)
[2022-04-11] MEDS ORDERED: ARTIFICIAL TEARS (POLYVINYL ALCOHOL) OPTH DROPS OU PRN (20:04)
[2022-04-11] MEDS ORDERED: diazePAM 5 MG TABLET PO PRN (20:20)
[2022-04-12] MEDS ORDERED: methaDONE HCL 40 MG DISPERSABLE TABLET PO ONE (00:41)
[2022-04-12] MEDS: TOLNAFTATE 1% CREAM 15 GM TUBE TP SCH ×3 (01:38→22:54)
[2022-04-12] MEDS: THIAMINE HCL 100 MG TABLET (FP) PO SCH ×2 (01:41→22:54)
[2022-04-12] MEDS ORDERED: methaDONE HCL 10 MG TABLET (FOR DETOX USE ONLY) PO ONE (10:00)
[2022-04-12] MEDS: PRENATAL VITAMINS W/ FOLIC ACID TABLET (FP) PO SCH (10:57)
[2022-04-12] MEDS ORDERED: FLU VACC QS2022-23(6MOS UP)/PF 60 MCG/0.5 ML SYRINGE IM ONE (12:00)
[2022-04-12 14:15] LABS: HEMATOCRIT 38.8 % (35.4-49); HEMOGLOBIN 13.4 GM/dL (11.7-16.9); MCH 31.5 pg (25.7-33.7); MCHC 34.6 g/dl (32.0-35.9); MEAN CELL VOLUME 91.2 fl (80-96); MEAN PLT VOLUME 9.8 fl (7.5-11.1); PLATELET COUNT 198 10^3/uL (134-434); RBC 4.26 M/mm3 (4.00-5.60); RDW 13.7 % (11.9-15.9)
[2022-04-12 14:30] LABS: CALCIUM 8.9 mg/dL (8.5-10.1)
[2022-04-12 14:31] LABS: ALBUMIN 3.5 g/dl (3.4-5.0); BLOOD UREA NITROGEN 17.1 mg/dL (7-18)
[2022-04-12 14:34] LABS: CREATININE 0.8 mg/dL (0.55-1.3)
[2022-04-12 14:36] LABS: BILIRUBIN,TOTAL 0.6 mg/dL (0.2-1); TOT PROT 6.8 g/dl (6.4-8.2)
[2022-04-12 15:13] LABS: HIV INTERPRETATION NEGATIVE (NEGATIVE)
[2022-04-13 09:10] VITALS: BP 129/69; PULSE 54; RESP 16; TEMP 98
[2022-04-13] MEDS: PRENATAL VITAMINS W/ FOLIC ACID TABLET (FP) PO SCH (10:32)
[2022-04-13] MEDS: TOLNAFTATE 1% CREAM 15 GM TUBE TP SCH (10:34)
== END 2022-04-13 12:25 | disposition home or self-care (01) | DRG 773 ==
LOC: YASAS 15:27 → Y3N 23:04
PROVIDERS: ADMIT Allergy & Immunology; ATTEND Surgery
PROC: HZ2ZZZZ Detoxification Services for Substance Abuse Treatment (ICD-10-PCS; principal; 2022-04-11)
DX: F11.23 Opioid dependence with withdrawal (principal); F13.20 Sedative, hypnotic or anxiolytic dependence, uncomplicated; F14.20 Cocaine dependence, uncomplicated; F16.20 Hallucinogen dependence, uncomplicated; F12.20 Cannabis dependence, uncomplicated; F43.10 Post-traumatic stress disorder, unspecified; F41.9 Anxiety disorder, unspecified; F32.A Depression, unspecified; F60.3 Borderline personality disorder; M54.50 Low back pain, unspecified; G89.29 Other chronic pain; Z86.19 Personal history of other infectious and parasitic diseases
CPT/HCPCS: 36415; 80053; 85027; 86780; 87389; G0008; Q2036

== ENCOUNTER 2022-06-23 15:58 | Emergency (ER) | payer OTHER ==
[2022-06-23 16:15] VITALS: BP 128/74; PULSE 89; RESP 18; TEMP 98.1; BMI 22.9
[2022-06-23] MEDS ORDERED: DALBAVANCIN HCL 1,500 MG in DEXTROSE 5%-WATER - 500 ML IVPB ONE (18:00)
[2022-06-23 18:55] LABS: BASO % 0.3 % (0-2.0); EOS % 2.9 % (0-4.5); HEMATOCRIT 37.1 % (35.4-49); LYMPH % 23.5 % (8-40); MCH 29.6 pg (25.7-33.7); MCHC 32.3 g/dl (32.0-35.9); MEAN CELL VOLUME 91.4 fl (80-96); MONO % 8.5 % (3.8-10.2); NEUT % 64.8 % (42.8-82.8); PLATELET COUNT 236 10^3/uL (134-434); RBC 4.06 M/mm3 (4.00-5.60); RDW 14.2 % (11.9-15.9); WHITE BLOOD COUNT 9.8 K/mm3 (4.0-10.0)
[2022-06-23 19:12] LABS: CALCIUM 9.4 mg/dL (8.5-10.1)
[2022-06-23 19:13] LABS: ALBUMIN 3.5 g/dl (3.4-5.0); BLOOD UREA NITROGEN 13.5 mg/dL (7-18)
[2022-06-23 19:16] LABS: CREATININE 0.7 mg/dL (0.55-1.3)
[2022-06-23 19:17] LABS: BILIRUBIN,TOTAL 0.3 mg/dL (0.2-1); TOT PROT 7.2 g/dl (6.4-8.2)
== END 2022-06-23 20:35 | disposition home or self-care (01) ==
LOC: JERFT 15:58 → JER 15:58 → JERFT 20:35
PROC: 3E033GC Introduction of Other Therapeutic Substance into Peripheral Vein, Percutaneous Approach (ICD-10-PCS; principal; 2022-06-23)
DX: L03.114 Cellulitis of left upper limb (principal)
CPT/HCPCS: 36415; 73090-TC-LT-FY; 80053; 85025; 87070; 87077; 87184; 87205; 96365; 99284-25; J0875

== ENCOUNTER 2022-08-19 12:08 | Inpatient (IN) | payer OTHER ==
[2022-08-19] MEDS ORDERED: LACTATED RINGERS SOLUTION 1000 ML INFUS.BAG IV ONE (12:50)
[2022-08-19] MEDS ORDERED: ACETAMINOPHEN INJECTION 100 ML IVPB ONE (12:55)
[2022-08-19] MEDS ORDERED: PANTOPRAZOLE SODIUM 40 MG VIAL ONE (12:56)
[2022-08-19] MEDS ORDERED: ONDANSETRON 4 MG/2 ML VIAL ONE (12:56)
[2022-08-19] MEDS ORDERED: ACETAMINOPHEN 1000 MG/100 ML BAG IVPB ONE (13:02)
[2022-08-19] MEDS ORDERED: PANTOPRAZOLE SODIUM 40 MG VIAL IVPUSH ONE (13:02)
[2022-08-19] MEDS ORDERED: ONDANSETRON 4 MG/2 ML VIAL IVPUSH ONE (13:03)
[2022-08-19] MEDS ORDERED: VANCOMYCIN 1,000 MG in DEXTROSE 5%-WATER - 250 ML IVPB ONE (13:11)
[2022-08-19 13:18] LABS: ARTERIAL BLD GAS O2 SATURATION 78.4 % (95-98); ARTERIAL BLOOD GAS BASE EXCESS 12.9 mmol/L (-2-2); ARTERIAL BLOOD GAS pH 7.546 (7.350-7.450); HEMATOCRIT 48.4 % (35.4-49); HEMOGLOBIN 16.8 GM/dL (11.7-16.9); MCH 30.8 pg (25.7-33.7); MCHC 34.7 g/dl (32.0-35.9); MEAN CELL VOLUME 88.9 fl (80-96); MEAN PLT VOLUME 8.7 fl (7.5-11.1); PLATELET COUNT 454 10^3/uL (134-434); RBC 5.44 M/mm3 (4.00-5.60); RDW 13.8 % (11.9-15.9); WHITE BLOOD COUNT 23.4 K/mm3 (4.0-10.0)
[2022-08-19] MEDS ORDERED: VANCOMYCIN/WATER FOR INJ (PEG) 1,000 MG/200 ML BAG IVPB ONE (13:21)
[2022-08-19 13:23] LABS: ARTERIAL BLOOD GAS PO2 37.7 mmHg (80-100)
[2022-08-19 14:03] LABS: LACTIC ACID 2.8 mmol/L (0.4-2.0)
[2022-08-19 14:11] LABS: ANISOCYTOSIS 0; MACROCYTOSIS 0
[2022-08-19 14:38] LABS: HIV INTERPRETATION NEGATIVE (NEGATIVE)
[2022-08-19 15:18] VITALS: RESP 18
[2022-08-19 15:23] LABS: EPI CELLS 16 /uL (0-25.1); HYALINE CASTS 14 /uL (0-3.1); URINE APPEARANCE CLOUDY; URINE BACTERIA 15 /uL (0-1359); URINE BILIRUBIN 1+ (NEGATIVE); URINE COLOR DK YELLOW; URINE GLUCOSE (UA) NEGATIVE (NEGATIVE); URINE KETONE TRACE (NEGATIVE); URINE LEUK ESTERASE NEGATIVE (NEGATIVE); URINE NITRITE NEGATIVE (NEGATIVE); URINE PROTEIN 1+ (NEGATIVE); URINE RBC 18 /uL (0-23.9); URINE UROBILINOGEN 0.2 mg/dL (0.2-1.0)
[2022-08-19 15:27] LABS: URINE WBC 18.3 /uL (0-25.8)
[2022-08-19 16:15] LABS: ALBUMIN 4.3 g/dl (3.4-5.0); BILIRUBIN,TOTAL 0.8 mg/dL (0.2-1); BLOOD UREA NITROGEN 33.9 mg/dL (7-18); CALCIUM 9.9 mg/dL (8.5-10.1); CREATININE 2.2 mg/dL (0.55-1.3); TOT PROT 8.8 g/dl (6.4-8.2)
[2022-08-19] MEDS ORDERED: LACTATED RINGERS SOLUTION 1,000 ML/1,000 ML INFUS.BAG IV ONE (16:21)
[2022-08-19 16:55] LABS: LACTIC ACID 2.7 mmol/L (0.4-2.0)
[2022-08-19] MEDS ORDERED: PIPERACILLIN/TAZOB 4.5 GM 4.5 GM in DEXTROSE 5%-WATER 100 ML IVPB ONE (18:15)
[2022-08-19] MEDS ORDERED: PIPERACILLIN/TAZOB 4.5 GM 4.5 GM/100 ML BAG IVPB ONE (18:26)
[2022-08-19] MEDS ORDERED: SODIUM CHLORIDE 1,000 ML IV SCH (20:15)
[2022-08-19] MEDS: SUCRALFATE 1 GM/10 ML UNIT DOSE CUPS PO SCH (22:20)
[2022-08-20] MEDS ORDERED: ACETAMINOPHEN 1000 MG/100 ML BAG IVPB ONE (02:00)
[2022-08-20] MEDS ORDERED: VANCOMYCIN/WATER FOR INJ (PEG) 750 MG/150 ML BAG IVPB ONE (04:00)
[2022-08-20] MEDS: PIPERACILLIN/TAZOB 2.25 GM 2.25 GM in DEXTROSE 5%-WATER - 50 ML IVPB SCH ×4 (04:21→22:18)
[2022-08-20] MEDS ORDERED: PIPERACILLIN/TAZOB 2.25 GM 2.25 GM in DEXTROSE 5%-WATER - 50 ML IVPB SCH (09:00)
[2022-08-20 09:08] LABS: CALCIUM 9.1 mg/dL (8.5-10.1)
[2022-08-20 09:09] LABS: ALBUMIN 3.7 g/dl (3.4-5.0); BLOOD UREA NITROGEN 27.4 mg/dL (7-18); MAGNESIUM 2.3 mg/dL (1.8-2.4)
[2022-08-20 09:13] LABS: BILIRUBIN,TOTAL 1.4 mg/dL (0.2-1); TOT PROT 7.4 g/dl (6.4-8.2)
[2022-08-20] MEDS: SUCRALFATE 1 GM/10 ML UNIT DOSE CUPS PO SCH ×3 (09:57→22:23)
[2022-08-20] MEDS ORDERED: VANCOMYCIN 1 GM in D5W (PRE-DOCKED) 1,000 MG/250 ML IVPB SCH (10:00)
[2022-08-20] MEDS ORDERED: PIPERACILLIN/TAZOB 4.5 GM 4.5 GM in DEXTROSE 5%-WATER 100 ML IVPB SCH (10:00)
[2022-08-20] MEDS ORDERED: POTASSIUM CHLORIDE ORAL LIQUID 20 MEQ/15 ML PO ONE (10:21)
[2022-08-20] MEDS ORDERED: ONDANSETRON 4 MG/2 ML VIAL IVPUSH PRN (10:22)
[2022-08-20] MEDS ORDERED: PROCHLORPERAZINE INJECTION 10 MG/2 ML VIAL IVPB PRN (10:39)
[2022-08-20] MEDS: KCL 10 MEQ IVPB 10 MEQ/100 ML INFUS.BAG IVPB SCH ×2 (11:16→12:49)
[2022-08-20 11:36] LABS: METHADONE, UR NEGATIVE (NEGATIVE); OPIATES, URI NEGATIVE (NEGATIVE); URINE BENZODIAZEPINES NEGATIVE (NEGATIVE)
[2022-08-20 11:37] LABS: PHENCYCLIDINE,URINE NEGATIVE (NEGATIVE)
[2022-08-20 11:50] LABS: URINE AMPHETAMINES NEGATIVE (NEGATIVE); URINE BARBITURATES NEGATIVE (NEGATIVE)
[2022-08-20 12:40] LABS: INR 0.93 (0.83-1.09); PROTHROMBIN TIME (PATIENT) 10.8 SEC (9.7-13.0)
[2022-08-20 12:43] LABS: ACTIVATED PTT 24.8 SECONDS (25.2-36.5)
[2022-08-20] MEDS: SODIUM CHLORIDE 1,000 ML IV SCH (12:51)
[2022-08-20 14:12] LABS: EPI CELLS 7 /uL (0-25.1); HYALINE CASTS 0 /uL (0-3.1); URINE APPEARANCE CLEAR; URINE BACTERIA 4 /uL (0-1359); URINE BILIRUBIN NEGATIVE (NEGATIVE); URINE COLOR YELLOW; URINE GLUCOSE (UA) NEGATIVE (NEGATIVE); URINE KETONE NEGATIVE (NEGATIVE); URINE LEUK ESTERASE NEGATIVE (NEGATIVE); URINE NITRITE NEGATIVE (NEGATIVE); URINE PROTEIN 1+ (NEGATIVE); URINE RBC 9 /uL (0-23.9); URINE UROBILINOGEN 0.2 mg/dL (0.2-1.0); URINE WBC 3 /uL (0-25.8)
[2022-08-20 14:47] LABS: COCAINE, UR POSITIVE (NEGATIVE)
[2022-08-20] MEDS: PANTOPRAZOLE SODIUM 40 MG VIAL IVPUSH SCH (22:18)
[2022-08-20] MEDS ORDERED: VANCOMYCIN/WATER FOR INJ (PEG) 1,000 MG/200 ML BAG IVPB SCH (23:00)
[2022-08-21] MEDS: PIPERACILLIN/TAZOB 2.25 GM 2.25 GM in DEXTROSE 5%-WATER - 50 ML IVPB SCH ×2 (02:28→13:02)
[2022-08-21] MEDS ORDERED: VANCOMYCIN/WATER FOR INJ (PEG) 1,000 MG/200 ML BAG IVPB SCH (04:00)
[2022-08-21] MEDS: SUCRALFATE 1 GM/10 ML UNIT DOSE CUPS PO SCH (12:42)
[2022-08-21] MEDS: PANTOPRAZOLE SODIUM 40 MG VIAL IVPUSH SCH (12:42)
[2022-08-21] MEDS: SODIUM CHLORIDE 1,000 ML IV SCH (13:02)
[2022-08-21 13:31] LABS: INR 1.12 (0.83-1.09)
[2022-08-21 13:39] LABS: BASO % 0.4 % (0-2.0); EOS % 0.1 % (0-4.5); HEMATOCRIT 40.4 % (35.4-49); HEMOGLOBIN 14.1 GM/dL (11.7-16.9); MCH 31.1 pg (25.7-33.7); MCHC 34.9 g/dl (32.0-35.9); MEAN PLT VOLUME 8.9 fl (7.5-11.1); MONO % 8.8 % (3.8-10.2); NEUT % 72.7 % (42.8-82.8); PLATELET COUNT 288 10^3/uL (134-434); RBC 4.54 M/mm3 (4.00-5.60); RDW 13.1 % (11.9-15.9); WHITE BLOOD COUNT 8.1 K/mm3 (4.0-10.0)
[2022-08-21 14:34] VITALS: BP 143/41; PULSE 60; TEMP 98.5
[2022-08-21 14:43] VITALS: BMI 21.2
[2022-08-21 17:40] LABS: CALCIUM 8.8 mg/dL (8.5-10.1)
[2022-08-21 17:41] LABS: ALBUMIN 3.6 g/dl (3.4-5.0); BLOOD UREA NITROGEN 17.8 mg/dL (7-18); MAGNESIUM 2.3 mg/dL (1.8-2.4)
[2022-08-21 17:44] LABS: CREATININE 0.8 mg/dL (0.55-1.3); PHOSPHOROUS 2.2 mg/dL (2.5-4.9)
[2022-08-21 17:45] LABS: BILIRUBIN,TOTAL 1.1 mg/dL (0.2-1); TOT PROT 7.1 g/dl (6.4-8.2)
[2022-08-21] MEDS ORDERED: PIPERACILLIN/TAZOB 3.375 GM 3.375 GM in DEXTROSE 5%-WATER - 50 ML IVPB SCH (18:00)
[2022-08-22] MEDS ORDERED: MULTIVITAMINS (DAILY MVI) TABLET (FP) PO SCH (10:00)
== END 2022-08-21 17:45 | disposition left against medical advice (07) | DRG 253 ==
LOC: JER 12:08 → JERBED 19:12 → J7W 08-20 01:00
PROVIDERS: ADMIT Internal Medicine; ATTEND Internal Medicine
DX: K92.0 Hematemesis (principal); E87.20 Acidosis, unspecified; N17.9 Acute kidney failure, unspecified; E87.1 Hypo-osmolality and hyponatremia; F11.20 Opioid dependence, uncomplicated; F14.20 Cocaine dependence, uncomplicated; F17.210 Nicotine dependence, cigarettes, uncomplicated; F41.8 Other specified anxiety disorders; F60.3 Borderline personality disorder; R31.9 Hematuria, unspecified
CPT/HCPCS: 0241U-QW; 36415; 36600; 71045-TC-FY; 74177-TC; 76705-TC; 80053; 80307; 81003; 82140; 82272; 82553; 82803; 83605; 83735; 83930; 83935; 84100; 84300; 84484; 85025; 85610; 85730; 86704; 86709; 86803; 86850; 86900; 86901; 87040; 87045; 87046; 87086; 87205; 87324; 87340; 87389; 87449; 87517; 93005; 93010; 93306-TC; 99291

== ENCOUNTER 2023-05-15 22:12 | Emergency (ER) | payer SELFPAY ==
[2023-05-15 22:27] VITALS: TEMP 98.2; BMI 26.4
[2023-05-15] MEDS ORDERED: ACETAMINOPHEN 1000 MG/100 ML BAG IVPB ONE (23:15)
[2023-05-15] MEDS ORDERED: ACETAMINOPHEN INJECTION 100 ML IVPB ONE (23:18)
[2023-05-15 23:44] LABS: BASO % 0.6 % (0-2.0); EOS % 3.9 % (0-4.5); HEMATOCRIT 39.6 % (35.4-49); HEMOGLOBIN 13.5 GM/dL (11.7-16.9); LYMPH % 17.9 % (8-40); MCH 30.7 pg (25.7-33.7); MEAN CELL VOLUME 90.3 fl (80-96); MONO % 9.1 % (3.8-10.2); NEUT % 68.5 % (42.8-82.8); PLATELET COUNT 196 10^3/uL (134-434); RBC 4.39 M/mm3 (4.00-5.60); RDW 13.9 % (11.9-15.9); WHITE BLOOD COUNT 9.7 K/mm3 (4.0-10.0)
[2023-05-15 23:50] LABS: INR 0.98 (0.83-1.09); PROTHROMBIN TIME (PATIENT) 11.4 SEC (9.7-13.0)
[2023-05-15 23:53] LABS: ACTIVATED PTT 27.1 SECONDS (25.2-36.5)
[2023-05-16 00:05] LABS: CALCIUM 8.9 mg/dL (8.5-10.1)
[2023-05-16 00:06] LABS: ALBUMIN 3.5 g/dl (3.4-5.0); BLOOD UREA NITROGEN 18.1 mg/dL (7-18)
[2023-05-16 00:09] LABS: CREATININE 0.9 mg/dL (0.55-1.3)
[2023-05-16 00:10] LABS: BILIRUBIN,TOTAL 0.7 mg/dL (0.2-1); TOT PROT 6.8 g/dl (6.4-8.2)
[2023-05-16] MEDS ORDERED: TETRACAINE 0.5% HCL 0.6ML DROPPER.BOTTLE OS ONE (01:48)
[2023-05-16] MEDS ORDERED: FLUORESCEIN NA 1 EA STRIP OS ONE (01:48)
[2023-05-16] MEDS ORDERED: FLUORESCEIN NA 1 EA STRIP ONE (01:55)
[2023-05-16] MEDS ORDERED: DIPHTH,PERTUSS(ACELL),TET 0.5 ML DISP.SYRIN IM ONE (02:16)
[2023-05-16 05:40] VITALS: BP 100/53; PULSE 55; RESP 17
== END 2023-05-16 05:56 | disposition short-term general hospital (02) ==
LOC: JER 22:12
PROC: 3E033NZ Introduction of Analgesics, Hypnotics, Sedatives into Peripheral Vein, Percutaneous Approach (ICD-10-PCS; principal; 2023-05-15)
PROC: 0HQ1XZZ Repair Face Skin, External Approach (ICD-10-PCS; 2023-05-15)
DX: S01.81XA Laceration without foreign body of other part of head, initial encounter (principal); S00.12XA Contusion of left eyelid and periocular area, initial encounter; S05.02XA Injury of conjunctiva and corneal abrasion without foreign body, left eye, initial encounter; R74.01 Elevation of levels of liver transaminase levels; H57.12 Ocular pain, left eye; R51.9 Headache, unspecified; X99.9XXA Assault by unspecified sharp object, initial encounter; Y00.XXXA Assault by blunt object, initial encounter; Y93.89 Activity, other specified; Y92.9 Unspecified place or not applicable
CPT/HCPCS: 36415; 70450-TC; 70486-TC; 72125-TC; 72131-TC; 80053; 85025; 85610; 85730; 86850; 86900; 86901; 99285-25

== ENCOUNTER 2023-05-21 13:14 | Emergency (ER) | payer SELFPAY ==
[2023-05-21 13:23] VITALS: BP 136/88; PULSE 98; RESP 18; TEMP 97.9; BMI 27.2
== END 2023-05-21 14:57 | disposition home or self-care (01) ==
LOC: JERFT 13:14
DX: Z48.02 Encounter for removal of sutures (principal); M54.50 Low back pain, unspecified; M25.551 Pain in right hip; Z87.828 Personal history of other (healed) physical injury and trauma
CPT/HCPCS: 73502-TC-RT-FY; 99283-25

== ENCOUNTER 2023-05-24 21:16 | Inpatient (IN) | payer OTHER ==
[2023-05-24 21:53] VITALS: BMI 27.9
[2023-05-24] MEDS ORDERED: MAG HYDROX/AL HYDROX/SIMETH 30 ML UNIT-DOSE CUP PO PRN (22:22)
[2023-05-24] MEDS ORDERED: BENZONATATE 200 MG CAPSULE PO PRN (22:22)
[2023-05-24] MEDS ORDERED: NALOXONE HCL (KLOXXADO) 8 MG SPRAY NS PRN (22:22)
[2023-05-24] MEDS ORDERED: DICYCLOMINE HCL 10 MG CAPSULE PO PRN (22:22)
[2023-05-24] MEDS ORDERED: LOPERAMIDE HCL 2 MG CAPSULE PO PRN (22:22)
[2023-05-24] MEDS ORDERED: IBUPROFEN 400 MG TABLET (FP) PO PRN (22:22)
[2023-05-24] MEDS ORDERED: IBUPROFEN 600 MG TABLET (FP) PO PRN (22:22)
[2023-05-24] MEDS ORDERED: MAGNESIUM HYDROX 2400MG/30ML ORAL SUSPENSION 30 ML CUP PO PRN (22:22)
[2023-05-24] MEDS ORDERED: NALOXONE HCL 0.4 MG/ML VIAL IM PRN (22:22)
[2023-05-24] MEDS ORDERED: PROCHLORPERAZINE MALEATE 5 MG TABLET PO PRN (22:22)
[2023-05-24] MEDS ORDERED: LORazepam 1 MG TABLET PO ONE (22:22)
[2023-05-24] MEDS ORDERED: guaiFENesin 600 MG TABLET.ER (FP) PO PRN (22:22)
[2023-05-24] MEDS ORDERED: BISMUTH SUBSALICYLATE 524 MG/30 ML PO PRN (22:22)
[2023-05-24] MEDS ORDERED: BENZOCAINE/MENTHOL (CHLORASEPTIC ) LOZENGE MM PRN (22:22)
[2023-05-24] MEDS ORDERED: P-EPHED 60MG/TRIPROLIDI 2.5MG TABLET PO PRN (22:22)
[2023-05-24] MEDS ORDERED: NICOTINE POLACRILEX 2 MG GUM BUC PRN (22:22)
[2023-05-24] MEDS ORDERED: POLYETHYLENE GLYCOL (HEALTHYLAX) 3350 17 GM PACKET PO PRN (22:22)
[2023-05-24] MEDS ORDERED: ACETAMINOPHEN 325 MG TABLET (FP) PO PRN (22:22)
[2023-05-24] MEDS ORDERED: ALBUTEROL SO4 HFA INHALER IH PRN (22:32)
[2023-05-24] MEDS ORDERED: MELATONIN 5 MG TABLETS PO SCH ×2 (22:37→23:00)
[2023-05-24] MEDS ORDERED: LORazepam 1 MG TABLET ONE (22:42)
[2023-05-24] MEDS ORDERED: ACETAMINOPHEN 325 MG TABLET (FP) ONE (22:42)
[2023-05-24] MEDS ORDERED: METHOCARBAMOL 500 MG TABLET ONE (22:42)
[2023-05-24] MEDS: METHOCARBAMOL 500 MG TABLET PO PRN (22:52)
[2023-05-25] MEDS ORDERED: LORazepam 1 MG TABLET PO ONE (02:13)
[2023-05-25 03:00] LABS: METHADONE, UR NEGATIVE (NEGATIVE); PHENCYCLIDINE,URINE NEGATIVE (NEGATIVE); URINE BENZODIAZEPINES NEGATIVE (NEGATIVE)
[2023-05-25 03:01] LABS: OPIATES, URI NEGATIVE (NEGATIVE); URINE AMPHETAMINES NEGATIVE (NEGATIVE); URINE BARBITURATES NEGATIVE (NEGATIVE)
[2023-05-25 03:09] LABS: COCAINE, UR POSITIVE (NEGATIVE)
[2023-05-25] MEDS: METHOCARBAMOL 500 MG TABLET PO PRN (07:14)
[2023-05-25] MEDS ORDERED: PRENATAL VITAMINS W/ FOLIC ACID TABLET (FP) PO SCH (10:00)
[2023-05-25 10:46] LABS: CHLORIDE 108 mmol/L (98-107); POTASSIUM 4.1 mmol/L (3.5-5.1); SODIUM 140 mmol/L (136-145)
[2023-05-25 10:53] LABS: ALBUMIN 3.3 g/dl (3.4-5.0); ANION GAP 5 mmol/L (4-13); BLOOD UREA NITROGEN 18.3 mg/dL (7-18); CALCIUM 8.5 mg/dL (8.5-10.1); CO2 27 mmol/L (21-32); GLUCOSE,RANDOM 99 mg/dL (74-106)
[2023-05-25 10:56] LABS: CREATININE 0.9 mg/dL (0.55-1.3); SGOT/AST 87 U/L (15-37); SGPT/ALT 146 U/L (13-61)
[2023-05-25 10:58] LABS: BILIRUBIN,TOTAL 0.5 mg/dL (0.2-1); TOT PROT 6.3 g/dl (6.4-8.2)
[2023-05-25 10:59] LABS: ALK PHOS 96 U/L (45-117)
[2023-05-25 11:02] LABS: HEMATOCRIT 35.7 % (35.4-49); MCH 30.6 pg (25.7-33.7); MCHC 33.6 g/dl (32.0-35.9); MEAN CELL VOLUME 91.3 fl (80-96); MEAN PLT VOLUME 10.1 fl (7.5-11.1); PLATELET COUNT 206 10^3/uL (134-434); RBC 3.91 M/mm3 (4.00-5.60); RDW 13.6 % (11.9-15.9); WHITE BLOOD COUNT 7.2 K/mm3 (4.0-10.0)
[2023-05-25 13:46] VITALS: BP 144/74; PULSE 66; RESP 20; TEMP 98.3
[2023-05-25] MEDS ORDERED: THIAMINE HCL 100 MG TABLET (FP) PO SCH (22:00)
[2023-05-25] MEDS ORDERED: MELATONIN 5 MG TABLETS PO SCH (22:00)
== END 2023-05-25 14:26 | disposition home or self-care (01) | DRG 773 ==
LOC: YASAS 21:16 → Y3N 22:37 → UNDOADMIN 22:37
PROVIDERS: ADMIT Allergy & Immunology; ATTEND Surgery
PROC: HZ2ZZZZ Detoxification Services for Substance Abuse Treatment (ICD-10-PCS; principal; 2023-05-24)
DX: F11.20 Opioid dependence, uncomplicated (principal); F18.288 Inhalant dependence with other inhalant-induced disorder; F14.20 Cocaine dependence, uncomplicated; F17.210 Nicotine dependence, cigarettes, uncomplicated; F12.20 Cannabis dependence, uncomplicated; F19.24 Other psychoactive substance dependence with psychoactive substance-induced mood disorder; F43.10 Post-traumatic stress disorder, unspecified; Z86.19 Personal history of other infectious and parasitic diseases; Z91.199 Patient's noncompliance with other medical treatment and regimen due to unspecified reason
CPT/HCPCS: 36415; 80053; 80307; 85027; 86780; 87635; 87811; 93005; 93010